=== PATIENT | female | born 1955 | race Caucasian/White ===

== ENCOUNTER 2016-07-16 14:32 | Observation (INO) | payer OTHER ==
[~2016-07-16] VITALS: Ht 165.1 cm; Wt 60.0 kg
[~2016-07-16 14:32] MED LIST: ASPI325T PO; CIPR500T4 PO; METO50TA PO; METR-1 PO; PERC5TAB12 PO; PROZ20CA11 PO; ROSU5 PO; TRAZ100 PO
[2016-07-16 14:34] VITALS: BP 122/78; PULSE 78; RESP 16; TEMP 97.3; O2SAT 97
[2016-07-16] MEDS ORDERED: PROPOFOL 200 MG/20 ML AMP IV ONE (14:41)
[2016-07-16] MEDS ORDERED: NEOSTIGMINE 3 MG/3 ML SYR IV ONE (14:42)
[2016-07-16] MEDS ORDERED: ONDANSETRON HCL 4 MG/2 ML VIAL IV PUSH ONE (14:42)
[2016-07-16 15:28] VITALS: BP 119/94; PULSE 66; RESP 16; O2SAT 99
[2016-07-16] MEDS ORDERED: SODIUM CHLOR 0.9% 1000 ML INJ 1,000 ML IV SCH (15:36)
--- NOTE | 2016-07-16 15:44 | PD ---
HPI Chief Complaint: Abdominal Pain Time Seen by Provider: 15:40 Travel History International Travel<30 days: No Contact w/Intl Traveler<30days: No Traveled to known affect area: No History of Present Illness HPI 61 year old female presents to the emergency department for evaluation of RLQ abdominal pain that started yesterday. She currently rates the pain 6/10. Patient reports nausea, but no vomiting, diarrhea, constipation. She denies any blood in her stool. She denies any CP or SOB. Patient reports history of diverticulitis, anxiety/depression, panic attacks, HTN, hyperlipidemia. Patient denies any alcohol, tobacco, drug use. Patient denies any prior abdominal surgeries. PFSH Past Medical History Anxiety: Yes Depression: Yes High Cholesterol: Yes Diverticulitis: Yes Gastrointestinal Disorders: Yes (GALLBLADDER, INTESTINAL PROBLEMS DUE TO "ANTIBIOTICS") Headaches: Yes Hypertension: Yes Migraines: Yes Influenza Vaccination: Yes Menopausal: Yes Ectopic : Yes Tubal Ligation: Yes Past Surgical History Abdominal Surgery: Yes ( 1986) Section: Yes Gynecologic Surgery: Yes (C SECTION, L BREAST BX AND INFECTION) Social History Alcohol Use: Yes (occasional) Tobacco Use: No Substance Use: No Allergies-Medications (Allergen,Severity, Reaction): Coded Allergies: No Known Allergies (Verified , 07/16/16) Reported Meds & Prescriptions Reported Meds & Active Scripts Active Reported Excedrin Migraine (Eqgebdr-Hxtlxcryqmaat-Oujkjbna) 250-250-65 Mg Tab 2 Tab PO Q12HR PRN Mirtazapine 45 Mg Tab 45 Mg PO HS Atorvastatin (Atorvastatin Calcium) 40 Mg Tab 40 Mg PO HS Dicyclomine (Dicyclomine HCl) 20 Mg Tab 20 Mg PO QID Clonazepam 1 Mg Tab 1 Mg PO BID Metoprolol Tartrate 25 Mg Tab 25 Mg PO BID Bupropion HCl ER 24 HR (Bupropion HCl) 150 Mg Tab 150 Mg PO DAILY Review of Systems Except as stated in HPI: all other systems reviewed are Neg Physical Exam Narrative GENERAL: Well-nourished, well-developed female patient, ambulatory. Afebrile. SKIN: Focused skin assessment warm/dry. HEAD: Normocephalic. Atraumatic. EYES: No scleral icterus. No injection or drainage. NECK: Supple, trachea midline. No JVD or lymphadenopathy. CARDIOVASCULAR: Regular rate and rhythm without murmurs, gallops, or rubs. RESPIRATORY: Breath sounds equal bilaterally. No accessory muscle use. Lungs sounds clear to auscultation. GASTROINTESTINAL: Abdomen soft and nondistended. Patient has tenderness over the right lower quadrant. MUSCULOSKELETAL: No cyanosis, or edema. BACK: Nontender without obvious deformity. No CVA tenderness. Data Data Last Documented VS Vital Signs Date Time Temp Pulse Resp B/P Pulse Ox O2 Delivery O2 Flow Rate FiO2 07/16/16 18:16 77 16 130/68 98 Room Air 07/16/16 14:34 97.3 Orders Complete Blood Count With Diff (07/16/16 15:36) Comprehensive Metabolic Panel (07/16/16 15:36) Lipase (07/16/16 15:36) Urinalysis - C+S If Indicated (07/16/16 15:36) Ct Abd/Pel W Iv Contrast(Rout) (07/16/16 15:36) Iv Access Insert/Monitor (07/16/16 15:36) Ecg Monitoring (07/16/16 15:36) Oximetry (07/16/16 15:36) Ondansetron Inj (Zofran Inj) (07/16/16 15:45) Sodium Chlor 0.9% 1000 Ml Inj (Ns 1000 M (07/16/16 15:36) Sodium Chloride 0.9% Flush (Ns Flush) (07/16/16 15:45) Morphine Inj (Morphine Inj) (07/16/16 15:45) Iohexol 350 Inj (Omnipaque 350 Inj) (07/16/16 17:30) Electrocardiogram (07/16/16 ) Chest, Single Ap (07/16/16 ) Prothrombin Time / Inr (Pt) (07/16/16 18:01) Act Partial Throm Time (Ptt) (07/16/16 18:01) Piperacil-Tazo 3.375 Gm Premix (Zosyn 3. (07/16/16 18:15) Labs Laboratory Tests Test 07/16/16 07/16/16 07/16/16 16:08 16:18 18:15 White Blood Count 7.0 TH/MM3 Red Blood Count 4.06 MIL/MM3 Hemoglobin 11.7 GM/DL Hematocrit 34.5 % Mean Corpuscular Volume 85.0 FL Mean Corpuscular Hemoglobin 28.7 PG Mean Corpuscular Hemoglobin 33.8 % Concent Red Cell Distribution Width 16.1 % Platelet Count 233 TH/MM3 Mean Platelet Volume 7.9 FL Neutrophils (%) (Auto) 66.3 % Lymphocytes (%) (Auto) 22.1 % Monocytes (%) (Auto) 9.1 % Eosinophils (%) (Auto) 2.2 % Basophils (%) (Auto) 0.3 % Neutrophils # (Auto) 4.7 TH/MM3 Lymphocytes # (Auto) 1.6 TH/MM3 Monocytes # (Auto) 0.6 TH/MM3 Eosinophils # (Auto) 0.2 TH/MM3 Basophils # (Auto) 0.0 TH/MM3 CBC Comment DIFF FINAL Differential Comment Sodium Level 143 MEQ/L Potassium Level 4.0 MEQ/L Chloride Level 111 MEQ/L Carbon Dioxide Level 24.3 MEQ/L Anion Gap 8 MEQ/L Blood Urea Nitrogen 13 MG/DL Creatinine 1.01 MG/DL Estimat Glomerular Filtration 56 ML/MIN Rate Random Glucose 81 MG/DL Calcium Level 8.7 MG/DL Total Bilirubin 0.2 MG/DL Aspartate Amino Transf 14 U/L (AST/SGOT) Alanine Aminotransferase 15 U/L (ALT/SGPT) Alkaline Phosphatase 68 U/L Total Protein 6.5 GM/DL Albumin 3.4 GM/DL Lipase 54 U/L Urine Color YELLOW Urine Turbidity CLEAR Urine pH 5.5 Urine Specific [place] 1.009 Urine Protein NEG mg/dL Urine Glucose (UA) NEG mg/dL Urine Ketones NEG mg/dL Urine Occult Blood NEG Urine Nitrite NEG Urine Bilirubin NEG Urine Urobilinogen LESS THAN 2.0 MG/DL Urine Leukocyte Esterase NEG Urine RBC LESS THAN 1 /hpf Urine WBC LESS THAN 1 /hpf Urine Squamous Epithelial <1 /hpf Cells Urine Hyaline Casts 2 /lpf Urine Mucus FEW /lpf Microscopic Urinalysis Comment CULT NOT INDICATED Prothrombin Time 10.6 SEC Prothromb Time International 1.0 RATIO Ratio Activated Partial 28.9 SEC Thromboplast Time MDM Medical Decision Making Medical Screen Exam Complete: Yes Emergency Medical Condition: Yes Medical Record Reviewed: Yes Interpretation(s) Last Impressions Abdomen/Pelvis CT 07/16/16 1536 Signed Impressions: Service Date/Time: Saturday, July 16, 2016 17:04 - CONCLUSION: 1. Borderline to mild enlargement of the appendix with mild inflammatory changes characteristic of a mild acute appendicitis. No abscess, obstruction, free fluid or free air. 2. Multiple gallstones. Juan Tapia MD Differential Diagnosis Appendicitis versus diverticulitis versus UTI Narrative Course 61-year-old female presents to the emergency department for evaluation of right lower quadrant pain that started yesterday. CBC, CMP, lipase, UA are ordered and pending. CBC revealed abdomen/pelvis is ordered and pending. CBC shows no acute normality. CMP shows no acute abnormality. Lipase is 54. UA is negative for acute infection. CT abdomen/pelvis shows borderline to mild enlargement of the appendix with mild inflammatory changes characteristic of a mild acute appendicitis. No abscess, obstruction, free fluid or free air; multiple gallstones. 1804 - General surgeon utilization management rn is paged. Chest x-ray, ekg are ordered and pending. PTT, PT/INR are ordered and pending. Patient is given Zosyn 3.[address] Najera accepted admission. Diagnosis Primary Impression: Acute appendicitis Qualified Code: K35.80 - Acute appendicitis, unspecified acute appendicitis type Admitting Information Admitting Physician Requests: Marie Carpio Jul 16, 2016 15:44
[2016-07-16] MEDS ORDERED: ONDANSETRON HCL 4 MG/2 ML VIAL IVP ONE (15:45)
[2016-07-16] MEDS ORDERED: SODIUM CHLORIDE 0.9% FLUSH 10 ML FLUSH IV FLUSH PRN ×2 (15:45→21:15)
[2016-07-16] MEDS ORDERED: MORPHINE SULFATE 4 MG/ML INJ IV PUSH ONE (15:45)
[2016-07-16 16:24] VITALS: BP 123/59; PULSE 68; RESP 16; O2SAT 98
[2016-07-16 16:24] LABS: AUTOMATED NEUTROPHIL # 4.7 TH/MM3 (1.8-7.7); BASOPHIL % 0.3 % (0.0-2.0); EOSINOPHIL # 0.2 TH/MM3 (0-0.4); EOSINOPHIL % 2.2 % (0.0-4.0); HEMATOCRIT 34.5 % (35.0-46.0); HEMO FLAGS DIFF FINAL; LYMPH % 22.1 % (9.0-44.0); LYMPHOCYTE # 1.6 TH/MM3 (1.0-4.8); MEAN CORPUSCULAR HEMOGLOBIN 28.7 PG (27.0-34.0); MEAN CORPUSCULAR HGB CONC 33.8 % (32.0-36.0); MONO % 9.1 % (0.0-8.0); NEUT % 66.3 % (16.0-70.0); PLATELET COUNT 233 TH/MM3 (150-450); RED BLOOD COUNT 4.06 MIL/MM3 (4.00-5.30); RED CELL DISTRIBUTION WIDTH 16.1 % (11.6-17.2)
[2016-07-16 16:27] LABS: BLOOD, URINE NEG (NEG); COMMENT (UR) CULT NOT INDICATED; CULTURE IF INDICATED CULT NOT INDICATED; GLUCOSE,URINE NEG (NEG); HYALINE CAST, URINE 2 /lpf (RARE); KETONE, URINE NEG (NEG); MUCUS URINE FEW /lpf (OCC); NITRITE,URINE NEG (NEG); PH, URINE 5.5 (5.0-8.5); SQUAMOUS EPITHELIAL CELL URINE <1 /hpf (0-5); URINE COLOR YELLOW (YELLW/STRAW)
[2016-07-16 16:47] LABS: ANION GAP 8 MEQ/L (5-15); AST (GOT) 14 U/L (15-37); BICARBONATE 24.3 MEQ/L (21.0-32.0); BLOOD UREA NITROGEN 13 MG/DL (7-18); CHLORIDE 111 MEQ/L (98-107); GLOMERULAR FILTRATION RATE 56 ML/MIN (>89); SODIUM (NA) 143 MEQ/L (136-145)
[2016-07-16 16:51] LABS: ALKALINE PHOSPHATASE 68 U/L (45-117); ALT (GPT) 15 U/L (10-53); TOTAL BILIRUBIN ADULT 0.2 MG/DL (0.2-1.0)
[2016-07-16] MEDS ORDERED: IOHEXOL 350 MG/ML 10 ML VIAL (for RAD DIAG) IV ONE (17:30)
--- NOTE | 2016-07-16 17:46 | RADRPT ---
EXAM DATE/TIME: 07/16/2016 17:04 [facility] COMPARISON: CT ABDOMEN & PELVIS W CONTRAST, January 05, 2015, 16:44. INDICATIONS : Right lower abdomen pain with nausea and vomiting today. IV CONTRAST: 70 cc Omnipaque 350 (iohexol) IV ORAL CONTRAST: No oral contrast ingested. RADIATION DOSE: 9.96 CTDIvol (mGy) MEDICAL HISTORY : Hypertension. SURGICAL HISTORY : Tubal ligation. ENCOUNTER: Initial ACUITY: 1 day PAIN SCALE: 5/10 LOCATION: Right lower quadrant TECHNIQUE: Volumetric scanning of the abdomen and pelvis was performed. Using automated exposure control and ad justment of the mA and/or kV according to patient size, radiation dose was kept as low as reasonably achievable to obtain optimal diagnostic quality images. FINDINGS: Compare with 2014. Lung bases are clear except minimal dependent atelectasis. No acute findings in th e liver, spleen, adrenals, kidneys or pancreas. Stable right renal cysts. Multiple calcified gallston es again seen in the gallbladder. In the right lower quadrant the appendix is minimally prominent just over 1 cm in diameter and there are mild periappendiceal inflammatory changes. No abscess, obstruction, free fluid or free air. CONCLUSION: 1. Borderline to mild enlargement of the appendix with mild inflammatory changes characteristic of a mild acute appendicitis. No abscess, obstruction, free fluid or free air. 2. Multiple gallstones. Juan Tapia MD on July 16, 2016 at 17:35 Board Certified Radiologist. This report was verified electronically.
[2016-07-16] MEDS ORDERED: PIPERACIL-TAZO 3.375 GM PREMIX 50 ML IV ONE (18:15)
[2016-07-16 18:16] VITALS: BP 130/68; PULSE 77; RESP 16; O2SAT 98
[2016-07-16 18:43] LABS: APTT (PATIENT) 28.9 SEC (24.3-30.1); PROTHROMBIN TIME - PATIENT 10.6 SEC (9.8-11.6)
[2016-07-16] MEDS ORDERED: ATOR40TA16 PO (18:48)
[2016-07-16] MEDS ORDERED: CLON1TAB PO (18:48)
[2016-07-16] MEDS ORDERED: EXCETAB PO (18:48)
[2016-07-16] MEDS ORDERED: BUPR150T3 PO (18:48)
[2016-07-16] MEDS ORDERED: METO25TA3 PO (18:48)
[2016-07-16] MEDS ORDERED: MIRT45TA PO (18:48)
[2016-07-16] MEDS ORDERED: DICY20TA10 PO (18:48)
--- NOTE | 2016-07-16 19:05 | RADRPT ---
EXAM DATE/TIME: 07/16/2016 18:30 [facility] COMPARISON: No previous studies available for comparison. INDICATIONS : Evaluate for any pulmonary disease as patient is pre-op for appendectomy MEDICAL HISTORY : Hypertension. SURGICAL HISTORY : Tubal ligation. ENCOUNTER: Initial ACUITY: 1 day PAIN SCORE: 0/10 LOCATION: Bilateral chest FINDINGS: A single view of the chest demonstrates the lungs to be symmetrically aerated without evidence of mas s, infiltrate or effusion. The cardiomediastinal contours are unremarkable. Osseous structures are intact. CONCLUSION: No acute disease. Juan Tapia MD on July 16, 2016 at 19:03 Board Certified Radiologist. This report was verified electronically.
--- NOTE | 2016-07-16 19:19 | HHI.HP ---
HPI Service General Surgery Primary Care Physician Idalia Bolaños MD Admission Diagnosis acute appendicitis Chief Complaint: Abdominal pain History of Present Illness The patient is a 61-year-old female with a history of migraines, hypertension, anxiety, and hyperlipidemia who presents with abdominal pain which started yesterday afternoon. It began in the right lower quadrant and it persists in the right lower quadrant. She's had nausea but no vomiting. She's had somewhat abnormal texture to her stools but no diarrhea. She has never had any pain like this. She does have a history of diverticulitis which felt different. Past surgical history includes and tubal ligation. She does have a history of gallstones, however, she denies any history of right upper quadrant pain after eating or nausea or bloating. Review of Systems Constitutional: DENIES: Fever, Chills Eyes: DENIES: Eye inflammation, Eye pain Respiratory: DENIES: Cough, Shortness of breath Cardiovascular: DENIES: Chest pain, Palpitations Gastrointestinal: COMPLAINS OF: Abdominal pain, Nausea Integumentary: DENIES: Pruritus, Rash Neurologic: DENIES: Localized weakness, Paresthesias Past Family Social History Past Medical History Migraines Hypertension Hyperlipidemia Anxiety Past Surgical History Tubal ligation Reported Medications Reported Meds & Active Scripts Active Reported Excedrin Migraine (Zuzlzwy-Pwsomtaaegobh-Pqgzfxmm) 250-250-65 Mg Tab 2 Tab PO Q12HR PRN Mirtazapine 45 Mg Tab 45 Mg PO HS Atorvastatin (Atorvastatin Calcium) 40 Mg Tab 40 Mg PO HS Dicyclomine (Dicyclomine HCl) 20 Mg Tab 20 Mg PO QID Clonazepam 1 Mg Tab 1 Mg PO BID Metoprolol Tartrate 25 Mg Tab 25 Mg PO BID Bupropion HCl ER 24 HR (Bupropion HCl) 150 Mg Tab 150 Mg PO DAILY Allergies: Coded Allergies: No Known Allergies (Verified , 07/16/16) Active Ordered Medications Current Medications Medications (Trade) Dose Ordered Sig/Yaz Route Start Time Stop Time Status Last Admin (NS Flush) 2 ml UNSCH PRN IV FLUSH 07/16/16 15:45 Family History Noncontributory Social History Occasional alcohol. No tobacco use. Physical Exam Vital Signs Vital Signs Date Time Temp Pulse Resp B/P Pulse Ox O2 Delivery O2 Flow Rate FiO2 07/16/16 18:16 77 16 130/68 98 Room Air 07/16/16 16:24 68 16 123/59 98 Room Air 07/16/16 15:28 66 16 119/94 99 Room Air 07/16/16 14:34 97.3 78 16 122/78 97 Room Air Physical Exam GENERAL: Awake and alert. No acute distress. Cooperative. HEAD: Normocephalic. Atraumatic. EYES: Pupils equal round and reactive to light bilaterally. No scleral icterus. CHEST: Lungs clear to auscultation bilaterally with no wheezing or rhonchi. No respiratory distress. CARDIOVASCULAR: Regular rate and rhythm. ABDOMEN: Soft. No rebound or guarding. Moderate tenderness to deep palpation in the right lower quadrant. EXTREMITIES: No cyanosis or edema. SKIN: Warm, dry, nonjaundiced. Laboratory Laboratory Tests Test 07/16/16 07/16/16 07/16/16 16:08 16:18 18:15 White Blood Count 7.0 Red Blood Count 4.06 Hemoglobin 11.7 Hematocrit 34.5 Mean Corpuscular Volume 85.0 Mean Corpuscular Hemoglobin 28.7 Mean Corpuscular Hemoglobin 33.8 Concent Red Cell Distribution Width 16.1 Platelet Count 233 Mean Platelet Volume 7.9 Neutrophils (%) (Auto) 66.3 Lymphocytes (%) (Auto) 22.1 Monocytes (%) (Auto) 9.1 Eosinophils (%) (Auto) 2.2 Basophils (%) (Auto) 0.3 Neutrophils # (Auto) 4.7 Lymphocytes # (Auto) 1.6 Monocytes # (Auto) 0.6 Eosinophils # (Auto) 0.2 Basophils # (Auto) 0.0 CBC Comment DIFF FINAL Differential Comment Sodium Level 143 Potassium Level 4.0 Chloride Level 111 Carbon Dioxide Level 24.3 Anion Gap 8 Blood Urea Nitrogen 13 Creatinine 1.01 Estimat Glomerular Filtration 56 Rate Random Glucose 81 Calcium Level 8.7 Total Bilirubin 0.2 Aspartate Amino Transf 14 (AST/SGOT) Alanine Aminotransferase 15 (ALT/SGPT) Alkaline Phosphatase 68 Total Protein 6.5 Albumin 3.4 Lipase 54 Urine Color YELLOW Urine Turbidity CLEAR Urine pH 5.5 Urine Specific [place] 1.009 Urine Protein NEG Urine Glucose (UA) NEG Urine Ketones NEG Urine Occult Blood NEG Urine Nitrite NEG Urine Bilirubin NEG Urine Urobilinogen LESS THAN 2.0 Urine Leukocyte Esterase NEG Urine RBC LESS THAN 1 Urine WBC LESS THAN 1 Urine Squamous Epithelial <1 Cells Urine Hyaline Casts 2 Urine Mucus FEW Microscopic Urinalysis Comment CULT NOT INDICATED Prothrombin Time 10.6 Prothromb Time International 1.0 Ratio Activated Partial 28.9 Thromboplast Time Result Diagram: 07/16/16 1608 07/16/16 1608 Imaging Last Impressions Abdomen/Pelvis CT 07/16/16 1536 Signed Impressions: Service Date/Time: Saturday, July 16, 2016 17:04 - CONCLUSION: 1. Borderline to mild enlargement of the appendix with mild inflammatory changes characteristic of a mild acute appendicitis. No abscess, obstruction, free fluid or free air. 2. Multiple gallstones. Juan Tapia MD Chest X-Ray 07/16/16 0000 Signed Impressions: Service Date/Time: Saturday, July 16, 2016 18:30 - CONCLUSION: No acute disease. Juan Tapia MD Assessment and Plan Assessment and Plan 61-year-old female who has an evaluation consistent with acute appendicitis. She has incidental finding of gallstones but is asymptomatic from that standpoint. I recommend to proceed with laparoscopic possible open, appendectomy. I discussed the details risks and benefits of the procedure with the patient and her . She understands and desires to proceed. She has been administered Zosyn in the emergency department. Tayo Najera MD Jul 16, 2016 19:19
[2016-07-16] MEDS ORDERED: BUPIVACAINE/EPINEPHRINE 0.25% PF 30 ML VIAL ONE (19:55)
[2016-07-16] MEDS ORDERED: MIDAZOLAM HCL 2 MG/2 ML VIAL ONE (20:13)
[2016-07-16] MEDS ORDERED: ACETAMINOPHEN 1000 MG/100 ML VIAL IV ONE (20:13)
[2016-07-16] MEDS ORDERED: fentaNYL CITRATE 250 MCG/5 ML AMP ONE (20:13)
[2016-07-16] MEDS ORDERED: LACTATED RINGER'S 1000 ML INJ 1,000 ML IV SCH (21:09)
[2016-07-16] MEDS ORDERED: MORPHINE SULFATE 4 MG/ML INJ IV PRN (21:15)
[2016-07-16] MEDS ORDERED: Post-op Orders (for Pharmacy) MISC XX ONE (21:15)
[2016-07-16] MEDS ORDERED: diphenhydrAMINE HCL 25 MG CAP PO PRN (21:15)
[2016-07-16] MEDS ORDERED: ACETAMINOPHEN/HYDROcodone 325 MG/5 MG TAB PO PRN (21:15)
[2016-07-16] MEDS ORDERED: NALOXONE HCL 0.4 MG/ML AMP IV PRN (21:15)
[2016-07-16] MEDS ORDERED: ONDANSETRON HCL 4 MG/2 ML VIAL IV PRN (21:15)
[2016-07-16] MEDS ORDERED: DO NOT ADM ANY ANTICOAGULANT DRUGS PRN (21:17)
--- NOTE | 2016-07-16 21:17 | PD.OP ---
cc: Tayo Najera MD Operative Report Date of Surgery: Jul 16, 2016 Preoperative Diagnosis: (1) Acute appendicitis Postoperative Diagnosis: (1) Acute appendicitis Procedure: Laparoscopic appendectomy Anesthesia: GETA Surgeon: Tyao Najera General Adjuster(s): Jose ROSADO Operation and Findings: EBL: 5 cc Complications: None apparent Operative findings: The tip of the appendix was slightly dilated. Otherwise the appendix appeared normal. Adhesions from the cecum to the anterior abdominal wall were taken down. The uterus both ovaries and fallopian tubes appeared normal. The distal half of the small bowel appeared normal. The sigmoid colon had no inflammation. The gallbladder was not inflamed but did have either stones or one large stone. Procedure in detail: The patient was taken to the operating room placed in the supine position with left arm tucked. General endotracheal anesthesia was induced and the abdomen was prepped and draped in usual sterile fashion. Surgical timeout was performed to verify correct patient procedure and site. Perioperative antibiotics were administered as necessary. Local anesthetic was injected in the skin and subcutaneous tissue at the left mid abdomen and a 5 mm incision made. Using the 5 mm Optiview trocar with laparoscope the abdomen was directly entered. Was then insufflated to 15 mmHg with CO2 gas which the patient tolerated well. The patient was then placed in Trendelenburg position and turned slightly to the left. A 12 mm port was placed under laparoscopic visualization in the suprapubic area and a 5 mm port in the infraumbilical fold. Attention was turned to the right lower quadrant and the appendix was basically normal appearing. There was possibly small amt of dilated/ inflammation at the tip. I opted to proceed with appendectomy. The mesoappendix was taken down with the Harmonic scalpel. Two #1 PDS Endoloops were placed at the base the appendix and the appendix transected with Harmonic scalpel. It was then removed using an Endo Catch bag. The appendiceal stump was intact with no leakage. Adhesions from the cecum to the anterior abdominal wall were taken down with the Harmonic scalpel. The distal half of the small bowel from the terminal ileum proximally was run and there was no inflammation or abnormalities. The uterus and both fallopian tubes and ovaries were normal appearing and there was no fluid in the pelvis. The gallbladder was inspected and was not inflamed. There were either multiple stones and one large stone in the gallbladder. I previously discussed with the patient if he was having any right upper quadrant pain or postprandial pain at all and she denied this. Therefore I did not perform a cholecystectomy. Finding no further etiology for pain other than possible appendicitis the procedure was then aborted. There was no purulent fluid identified in the abdomen was allowed to desufflate. The fascia at the 12 mm port site was closed with a single 0 Vicryl suture. Skin closed with subcuticular Monocryl as well as Dermabond. The patient tolerated the procedure well was extubated and taken to PACU in stable condition. Tayo Najera MD Jul 16, 2016 21:17
[2016-07-16 22:10] VITALS: BP 131/65; PULSE 66; RESP 16; TEMP 96; O2SAT 100
[2016-07-16 22:58] VITALS: O2SAT 100
[2016-07-16] MEDS: ACETAMINOPHEN/HYDROcodone 325 MG/10 MG TAB PO PRN (23:13)
[2016-07-17] VITALS: BP 113/76; PULSE 76; RESP 18; TEMP 97.1; O2SAT 98
[2016-07-17 04:00] VITALS: BP 106/57; PULSE 85; RESP 20; TEMP 97.9; O2SAT 95
[2016-07-17] MEDS: ACETAMINOPHEN/HYDROcodone 325 MG/10 MG TAB PO PRN (04:49)
[2016-07-17] MEDS: clonazePAM 1 MG TAB PO SCH ×2 (06:14→09:35)
[2016-07-17] MEDS ORDERED: ASPIRIN ACETAMINOPHEN CAFFEINE PO PRN (07:15)
[2016-07-17 07:23] LABS: AUTOMATED NEUTROPHIL # 7.1 TH/MM3 (1.8-7.7); BASOPHIL % 0.1 % (0.0-2.0); HEMATOCRIT 33.1 % (35.0-46.0); HEMO FLAGS DIFF FINAL; LYMPH % 8.5 % (9.0-44.0); LYMPHOCYTE # 0.7 TH/MM3 (1.0-4.8); MEAN CORPUSCULAR HEMOGLOBIN 28.4 PG (27.0-34.0); MEAN CORPUSCULAR HGB CONC 33.4 % (32.0-36.0); MONO % 1.9 % (0.0-8.0); NEUT % 89.5 % (16.0-70.0); PLATELET COUNT 231 TH/MM3 (150-450)
[2016-07-17 07:32] VITALS: BP 100/52; PULSE 74; RESP 16; TEMP 98.6; O2SAT 94
[2016-07-17] MEDS ORDERED: HYDR-3516 PO (08:12)
--- NOTE | 2016-07-17 08:15 | HHI.PR ---
Subjective Subjective Notes RLQ pain is gone. No nausea. Had jello and yogurt last night. Objective Vitals/I&O Vital Signs Date Time Temp Pulse Resp B/P Pulse Ox O2 Delivery O2 Flow Rate FiO2 07/17/16 04:00 97.9 85 20 106/57 95 07/16/16 22:58 Nasal Cannula 2.00 Labs Laboratory Tests Test 07/16/16 07/16/16 07/16/16 07/17/16 16:08 16:18 18:15 06:41 White Blood Count 7.0 8.0 Red Blood Count 4.06 3.90 Hemoglobin 11.7 11.1 Hematocrit 34.5 33.1 Mean Corpuscular Volume 85.0 85.0 Mean Corpuscular Hemoglobin 28.7 28.4 Mean Corpuscular Hemoglobin 33.8 33.4 Concent Red Cell Distribution Width 16.1 16.0 Platelet Count 233 231 Mean Platelet Volume 7.9 8.0 Neutrophils (%) (Auto) 66.3 89.5 Lymphocytes (%) (Auto) 22.1 8.5 Monocytes (%) (Auto) 9.1 1.9 Eosinophils (%) (Auto) 2.2 0.0 Basophils (%) (Auto) 0.3 0.1 Neutrophils # (Auto) 4.7 7.1 Lymphocytes # (Auto) 1.6 0.7 Monocytes # (Auto) 0.6 0.1 Eosinophils # (Auto) 0.2 0.0 Basophils # (Auto) 0.0 0.0 CBC Comment DIFF FINAL DIFF FINAL Differential Comment Sodium Level 143 Potassium Level 4.0 Chloride Level 111 Carbon Dioxide Level 24.3 Anion Gap 8 Blood Urea Nitrogen 13 Creatinine 1.01 Estimat Glomerular Filtration 56 Rate Random Glucose 81 Calcium Level 8.7 Total Bilirubin 0.2 Aspartate Amino Transf 14 (AST/SGOT) Alanine Aminotransferase 15 (ALT/SGPT) Alkaline Phosphatase 68 Total Protein 6.5 Albumin 3.4 Lipase 54 Urine Color YELLOW Urine Turbidity CLEAR Urine pH 5.5 Urine Specific [place] 1.009 Urine Protein NEG Urine Glucose (UA) NEG Urine Ketones NEG Urine Occult Blood NEG Urine Nitrite NEG Urine Bilirubin NEG Urine Urobilinogen LESS THAN 2.0 Urine Leukocyte Esterase NEG Urine RBC LESS THAN 1 Urine WBC LESS THAN 1 Urine Squamous Epithelial <1 Cells Urine Hyaline Casts 2 Urine Mucus FEW Microscopic Urinalysis Comment CULT NOT INDICATED Prothrombin Time 10.6 Prothromb Time International 1.0 Ratio Activated Partial 28.9 Thromboplast Time Radiology Last Impressions Abdomen/Pelvis CT 07/16/16 1536 Signed Impressions: Service Date/Time: Saturday, July 16, 2016 17:04 - CONCLUSION: 1. Borderline to mild enlargement of the appendix with mild inflammatory changes characteristic of a mild acute appendicitis. No abscess, obstruction, free fluid or free air. 2. Multiple gallstones. Juan Tapia MD Chest X-Ray 07/16/16 0000 Signed Impressions: Service Date/Time: Saturday, July 16, 2016 18:30 - CONCLUSION: No acute disease. Juan Tapia MD Narrative Exam NAD Abd: soft, nontender except at incisions, inc c/d/i A/P Assessment and Plan 61 yo F POD 1 s/p lap appy. Appendix appeared normal. Her pain is better and she has no nausea. I am going to dc her home. She will f/u in two weeks, call earlier if any issues. Stable. Reg diet. Activity- no heavy lifting. Tayo Najera MD Jul 17, 2016 08:15
[2016-07-17] MEDS ORDERED: METOPROLOL TARTRATE 25 MG TAB PO SCH (09:00)
[2016-07-17] MEDS ORDERED: SODIUM CHLORIDE 0.9% FLUSH 10 ML FLUSH IV FLUSH SCH (09:00)
[2016-07-17] MEDS ORDERED: buPROPion HCL 150 MG SUSTAINED RELEASE TAB PO SCH (10:00)
--- NOTE | 2016-07-17 11:43 | EKG ---
Date Performed: 07/16/2016 Time Performed: 18:23:58 PTAGE: 61 years EKG: Sinus rhythm NORMAL ECG PREVIOUS TRACING : 02/29/2004 12.23 Compared to prior tracing no significant change DOCTOR: Itz Colindres Interpretating Date/Time 07/17/2016 11:42:53
[2016-07-17] MEDS ORDERED: MIRTAZAPINE 15 MG TAB PO SCH (21:00)
[2016-07-17] MEDS ORDERED: ATORVASTATIN 40 MG TAB PO SCH (21:00)
== END 2016-07-17 11:00 | disposition home or self-care (01) ==
LOC: NEPC 14:32 → NEDA 19:12 → N06B 22:03
PROVIDERS: ADMIT Surgery; ATTEND Surgery
DX: K35.80 Unspecified acute appendicitis (principal); I10 Essential (primary) hypertension; E78.5 Hyperlipidemia, unspecified; F41.0 Panic disorder [episodic paroxysmal anxiety]; F32.9 Major depressive disorder, single episode, unspecified; E78.00 Pure hypercholesterolemia, unspecified; G43.909 Migraine, unspecified, not intractable, without status migrainosus
CPT/HCPCS: 44970; 71010; 74177; 80053; 81001; 83690; 85025; 85610; 85730; 88304; 93005; 94150; 96361; 96365; 96375; 99285; G0378; J0131; J2250; J2270; J2405; J2543; J2710; J3010; J7030; Q9967

== ENCOUNTER 2016-07-22 19:27 | Emergency (ER) | payer OTHER ==
[~2016-07-22] VITALS: Ht 165.1 cm; Wt 59.1 kg
[~2016-07-22 19:27] MED LIST changes: -ASPI325T PO; +ATOR40TA16 PO; +BUPR150T3 PO; -CIPR500T4 PO; +CLON1TAB PO; +DICY20TA10 PO; +EXCETAB PO; +HYDR-3516 PO; +METO25TA3 PO; -METO50TA PO; -METR-1 PO; +MIRT45TA PO; -PERC5TAB12 PO; -PROZ20CA11 PO; -ROSU5 PO; -TRAZ100 PO
[2016-07-22 19:29] VITALS: BP 141/65; PULSE 104; RESP 16; TEMP 97.9; O2SAT 99
[2016-07-22 20:52] VITALS: BP 136/72; PULSE 101; RESP 18; TEMP 98.2; O2SAT 99
[2016-07-22] MEDS ORDERED: SODIUM CHLOR 0.9% 1000 ML INJ 1,000 ML IV SCH (21:04)
[2016-07-22] MEDS ORDERED: SODIUM CHLORIDE 0.9% FLUSH 10 ML FLUSH IV FLUSH PRN (21:15)
[2016-07-22] MEDS ORDERED: ONDANSETRON HCL 4 MG/2 ML VIAL IVP ONE (21:15)
[2016-07-22] MEDS ORDERED: HYDROmorphone HCL PF 1 MG/ML VIAL IVS ONE (21:15)
[2016-07-22 21:45] LABS: BACTERIA, URINE RARE /hpf; BLOOD, URINE SMALL (NEG); COMMENT (UR) CULT NOT INDICATED; CULTURE IF INDICATED CULT NOT INDICATED; GLUCOSE,URINE NEG (NEG); HYALINE CAST, URINE 5 /lpf (RARE); KETONE, URINE TRACE mg/dL (NEG); MUCUS URINE FEW /lpf (OCC); NITRITE,URINE NEG (NEG); PH, URINE 5.5 (5.0-8.5); SQUAMOUS EPITHELIAL CELL URINE 5 /hpf (0-5); URINE COLOR DARK-YELLOW (YELLW/STRAW)
[2016-07-22 21:48] LABS: AUTOMATED NEUTROPHIL # 11.1 TH/MM3 (1.8-7.7); BASOPHIL % 0.2 % (0.0-2.0); HEMATOCRIT 41.1 % (35.0-46.0); HEMO FLAGS DIFF FINAL; LYMPH % 4.4 % (9.0-44.0); LYMPHOCYTE # 0.6 TH/MM3 (1.0-4.8); MEAN CORPUSCULAR HEMOGLOBIN 27.8 PG (27.0-34.0); MEAN CORPUSCULAR HGB CONC 32.3 % (32.0-36.0); NEUT % 84.4 % (16.0-70.0); PLATELET COUNT 303 TH/MM3 (150-450); RED BLOOD COUNT 4.79 MIL/MM3 (4.00-5.30); RED CELL DISTRIBUTION WIDTH 15.8 % (11.6-17.2); WHITE BLOOD COUNT 13.1 TH/MM3 (4.0-11.0)
[2016-07-22 22:13] LABS: ANION GAP 11 MEQ/L (5-15); AST (GOT) 16 U/L (15-37); BICARBONATE 24.6 MEQ/L (21.0-32.0); BLOOD UREA NITROGEN 17 MG/DL (7-18); CHLORIDE 102 MEQ/L (98-107); GLOMERULAR FILTRATION RATE 38 ML/MIN (>89); POTASSIUM 3.5 MEQ/L (3.5-5.1); SODIUM (NA) 138 MEQ/L (136-145)
[2016-07-22 22:16] LABS: ALKALINE PHOSPHATASE 116 U/L (45-117); ALT (GPT) 18 U/L (10-53); TOTAL BILIRUBIN ADULT 0.2 MG/DL (0.2-1.0)
--- NOTE | 2016-07-22 22:27 | PD ---
HPI Chief Complaint: Abdominal Pain Time Seen by Provider: 20:47 Travel History International Travel<30 days: No Contact w/Intl Traveler<30days: No Traveled to known affect area: No History of Present Illness HPI 61-year-old female arrives complaining of left lower quadrant pain for about 1 day. Pain started about 12 hours prior to ER arrival. She reports diarrhea upon waking up at about 10:30 in the morning followed by vomiting. The emesis was yellow. The diarrhea was nonbloody. She drinks soda today and had no solid food otherwise. The patient underwent an appendectomy approximately [address] Najera. Last night the patient ate her first solid meal since the surgery which was reported couplets and blanched cauliflower. She denies fever. PFSH Past Medical History Arthritis: No Asthma: No Autoimmune Disease: No Anxiety: Yes Depression: Yes Heart Rhythm Problems: No Cancer: No Cardiovascular Problems: Yes High Cholesterol: Yes Chemotherapy: No Chest Pain: No Congestive Heart Failure: No COPD: No Cerebrovascular Accident: No Diabetes: No Diverticulitis: Yes Endocrine: No Gastrointestinal Disorders: Yes (GALLBLADDER, INTESTINAL PROBLEMS DUE TO "ANTIBIOTICS") GERD: No Genitourinary: No Headaches: Yes Hiatal Hernia: No Hypertension: Yes Immune Disorder: No Kidney Stones: No Musculoskeletal: No Neurologic: Yes Psychiatric: Yes Reproductive: No Respiratory: No Migraines: Yes Radiation Therapy: No Renal Failure: No Seizures: No Sickle Cell Disease: No Sleep Apnea: No Thyroid Disease: No Ulcer: No Tetanus Vaccination: < 5 Years Menopausal: Yes Ectopic : Yes Tubal Ligation: Yes Past Surgical History Abdominal Surgery: No AICD: No Appendectomy: Yes Arteriovenous Shunt: No Cardiac Surgery: No Section: Yes Ear Surgery: No Endocrine Surgery: No Eye Surgery: No Genitourinary Surgery: No Gynecologic Surgery: Yes (, TUBAL LIGATION, BILATERAL BREAST CYST REMOVAL) Insulin Pump: No Joint Replacement: No Oral Surgery: No Pacemaker: No Thoracic Surgery: No Other Surgery: Yes Social History Alcohol Use: Yes (occasional) Tobacco Use: No Substance Use: No Allergies-Medications (Allergen,Severity, Reaction): Coded Allergies: No Known Allergies (Verified , 07/22/16) Reported Meds & Prescriptions Reported Meds & Active Scripts Active Reglan (Metoclopramide HCl) 5 Mg Tab 5 Mg PO TIDAC PRN Bactrim DS (Sulfamethoxazole-Trimethoprim) 800-160 Mg Tab 1 Tab PO BID Hydrocodone-Acetaminophen 5-325 mg Tab 1-2 Tab PO Q4H PRN Reported Wellbutrin Xl 24 HR (Bupropion HCl) 150 Mg Tab 150 Mg PO DAILY Excedrin Migraine (Tyqslcw-Hwwijtauewamw-Weogcfnl) 250-250-65 Mg Tab 2 Tab PO Q12HR PRN Mirtazapine 45 Mg Tab 45 Mg PO HS Atorvastatin (Atorvastatin Calcium) 40 Mg Tab 40 Mg PO HS Dicyclomine (Dicyclomine HCl) 20 Mg Tab 20 Mg PO QID Clonazepam 1 Mg Tab 1 Mg PO BID Metoprolol Tartrate 25 Mg Tab 25 Mg PO BID Review of Systems Except as stated in HPI: all other systems reviewed are Neg General / Constitutional: No: Fever Gastrointestinal: Positive: Nausea, Vomiting, Diarrhea, Abdominal Pain Physical Exam Narrative GENERAL: 61-year-old female pleasant well-nourished well-developed SKIN: Focused skin assessment warm/dry. HEAD: Atraumatic. Normocephalic. EYES: Pupils equal and round. No scleral icterus. No injection or drainage. ENT: No nasal bleeding or discharge. Mucous membranes pink and moist. NECK: Trachea midline. No JVD. CARDIOVASCULAR: Regular rate and rhythm. No murmur appreciated. RESPIRATORY: No accessory muscle use. Clear to auscultation. Breath sounds equal bilaterally. GASTROINTESTINAL: Trocar incision sites are well approximated about the abdomen. There is marked tenderness to palpation in the left lower quadrant. The abdomen is soft. MUSCULOSKELETAL: No obvious deformities. No clubbing. No cyanosis. No edema. NEUROLOGICAL: Awake and alert. No obvious cranial nerve deficits. Motor grossly within normal limits. Normal speech. PSYCHIATRIC: Appropriate mood and affect; insight and judgment normal. Data Data Last Documented VS Vital Signs Date Time Temp Pulse Resp B/P Pulse Ox O2 Delivery O2 Flow Rate FiO2 07/22/16 23:36 98.4 89 18 122/68 98 Room Air Vital signs reviewed Orders Complete Blood Count With Diff (07/22/16 21:04) Comprehensive Metabolic Panel (07/22/16 21:04) Lipase (07/22/16 21:04) Lactic Acid (07/22/16 21:04) Urinalysis - C+S If Indicated (07/22/16 21:04) Ct Abd/Pel W Iv Contrast(Rout) (07/22/16 21:04) Iv Access Insert/Monitor (07/22/16 21:04) Ecg Monitoring (07/22/16 21:04) Oximetry (07/22/16 21:04) Ondansetron Inj (Zofran Inj) (07/22/16 21:15) Sodium Chlor 0.9% 1000 Ml Inj (Ns 1000 M (07/22/16 21:04) Sodium Chloride 0.9% Flush (Ns Flush) (07/22/16 21:15) Hydromorphone Pf Inj (Dilaudid Pf Inj) (07/22/16 21:15) Iodixanol 320 Inj (Visipaque 320 Inj) (07/22/16 23:09) Lactic Acid (07/23/16 00:05) Sulfamet-Trimeth Ds 800-160 Mg (Bactrim (07/23/16 01:15) Labs Laboratory Tests Test 07/22/16 07/22/16 07/23/16 21:00 21:10 00:22 Urine Color DARK-YELLOW Urine Turbidity HAZY Urine pH 5.5 Urine Specific [place] 1.032 Urine Protein 30 mg/dL Urine Glucose (UA) NEG mg/dL Urine Ketones TRACE mg/dL Urine Occult Blood SMALL Urine Nitrite NEG Urine Bilirubin NEG Urine Urobilinogen 4.0 MG/DL Urine Leukocyte Esterase SMALL Urine RBC 6 /hpf Urine WBC 3 /hpf Urine Squamous Epithelial 5 /hpf Cells Urine Bacteria RARE /hpf Urine Hyaline Casts 5 /lpf Urine Mucus FEW /lpf Microscopic Urinalysis Comment CULT NOT INDICATED White Blood Count 13.1 TH/MM3 Red Blood Count 4.79 MIL/MM3 Hemoglobin 13.3 GM/DL Hematocrit 41.1 % Mean Corpuscular Volume 86.0 FL Mean Corpuscular Hemoglobin 27.8 PG Mean Corpuscular Hemoglobin 32.3 % Concent Red Cell Distribution Width 15.8 % Platelet Count 303 TH/MM3 Mean Platelet Volume 8.1 FL Neutrophils (%) (Auto) 84.4 % Lymphocytes (%) (Auto) 4.4 % Monocytes (%) (Auto) 11.0 % Eosinophils (%) (Auto) 0.0 % Basophils (%) (Auto) 0.2 % Neutrophils # (Auto) 11.1 TH/MM3 Lymphocytes # (Auto) 0.6 TH/MM3 Monocytes # (Auto) 1.5 TH/MM3 Eosinophils # (Auto) 0.0 TH/MM3 Basophils # (Auto) 0.0 TH/MM3 CBC Comment DIFF FINAL Differential Comment Sodium Level 138 MEQ/L Potassium Level 3.5 MEQ/L Chloride Level 102 MEQ/L Carbon Dioxide Level 24.6 MEQ/L Anion Gap 11 MEQ/L Blood Urea Nitrogen 17 MG/DL Creatinine 1.39 MG/DL Estimat Glomerular Filtration 38 ML/MIN Rate Random Glucose 178 MG/DL Lactic Acid Level 4.9 mmol/L 3.0 mmol/L Calcium Level 9.4 MG/DL Total Bilirubin 0.2 MG/DL Aspartate Amino Transf 16 U/L (AST/SGOT) Alanine Aminotransferase 18 U/L (ALT/SGPT) Alkaline Phosphatase 116 U/L Total Protein 7.6 GM/DL Albumin 3.7 GM/DL Lipase 41 U/L [facility] Medical Decision Making Medical Screen Exam Complete: Yes Emergency Medical Condition: Yes Medical Record Reviewed: Yes Differential Diagnosis Constipation, Gastritis, Acute Cholecystitis, Biliary Colic, Pancreatitis, RUSSELL , Hepatitis, Bowel Obstruction, Cystitis, Mesenteric Ischemia, AAA, Appendicitis , Renal Stone/Hydronephrosis, GERD, perforated viscous Narrative Course CBC & BMP Diagram 07/22/16 21:10 LFTs normal Lipase 41 Urinalysis shows a few RBCs squamous cells and WBCs Patient reassessed at about 10:15 PM and reported feeling better. She was seen resting comfortably. CT pelvis pending. Last 24 hours Impressions Abdomen/Pelvis CT 07/22/162103 Signed Impressions: Service Date/Time: Friday, July 22, 2016 23:02 - CONCLUSION: 1. There is air within the intra-abdominal wall within the left lower quadrant without inflammatory change. This could relate to subcutaneous injections of medication. I cannot completely exclude infection although I see no inflammatory change. 2. Cholelithiasis. Jose Feilds Jr., MD The repeat lactic acid was 3.0. The patient has been reassessed about 3 times at least since the first results were obtained. She has had markedly decreased pain in the left side. Her vital signs remained stable. Her skin is warm and dry and she appears to be in no distress. The repeat lactic acid is possibly a false positive due to tourniquet time. This scenario hand that is considered doubtful that the patient actually has a significant hypoperfused state. She can go home with Lortab, Reglan and Bactrim. Case discussed with Dr. pulido for Gen. surgery. The patient agrees to follow-up with Dr. Najera on Sunday. Should she develop any severe or worsening pain fever nausea vomiting or any abnormal state based on her discretion she understands to return to the ER with special consideration given to the next 8 hours or so. She was advised against taking clonazepam and Lortab concurrently. Diagnosis Primary Impression: Pain in the abdomen Qualified Code: R10.32 - Left lower quadrant pain Additional Impressions: Subcutaneous air Qualified Code: T79.7XXA - Subcutaneous air, initial encounter Nausea vomiting and diarrhea Referrals: Tayo Najera MD 2 days Additional Instructions: You have a choice when it comes to health care, and we are glad that you chose [facility]. Hopefully, we have met your expectations on today's visit. You are welcome to return to [facility] at any time, as we are committed to meeting the health care needs of our community. Med/Other Pt SpecificInfo: Prescription(s) given Scripts Metoclopramide (Reglan)5 Mg Tab5 Mg PO TIDAC PRN (NAUSEA OR VOMITING) #10 TAB Ref 0 Prov:Mars Kaur MD 07/23/16 Sulfamethoxazole-Trimethoprim (Bactrim DS)800-160 Mg Tab1 Tab PO BID #20 TAB Ref 0 Prov:Mars Kaur MD 07/23/16 Hydrocodone-Acetaminophen 5-325 mg Tab1-2 Tab PO Q4H PRN (PAIN) #20 TAB Prov:Mars Kaur MD 07/23/16 Disposition: 01 DISCHARGE HOME Condition: Stable Mars Kaur MD Jul 22, 2016 22:27
[2016-07-22] MEDS ORDERED: IODIXANOL 320 MG/ML 10 ML VIAL (for RAD SPEC) IV ONE (23:09)
[2016-07-22] MEDS ORDERED: BUPR150XL PO (23:20)
--- NOTE | 2016-07-22 23:20 | RADRPT ---
EXAM DATE/TIME: 07/22/2016 23:02 [facility] COMPARISON: CT ABDOMEN & PELVIS W CONTRAST, July 16, 2016, 17:04. INDICATIONS : Vomiting and diarrhea since this morning one week post appendectomy. IV CONTRAST: 46 cc Visipaque (iodixanol) IV ORAL CONTRAST: No oral contrast ingested. RADIATION DOSE: 4.84 CTDIvol (mGy) MEDICAL HISTORY : Hypertension. SURGICAL HISTORY : Appendectomy. section.Tubal ligation. ENCOUNTER: Initial ACUITY: 1 day PAIN SCALE: 7/10 LOCATION: abdomen TECHNIQUE: Volumetric scanning of the abdomen and pelvis was performed. Using automated exposure control and ad justment of the mA and/or kV according to patient size, radiation dose was kept as low as reasonably achievable to obtain optimal diagnostic quality images. FINDINGS: LOWER LUNGS: The visualized lower lungs are clear. LIVER: Homogeneous density without lesion. There is no dilation of the biliary tree. Small calcified gallst ones. Gallbladder is otherwise unremarkable. SPLEEN: Normal size without lesion. PANCREAS: Within normal limits. KIDNEYS: Normal in size and shape. There is no mass, stone or hydronephrosis. A 2.2 cm simple cyst is seen in volving the right kidney. Hounsfield units are 14. ADRENAL GLANDS: Within normal limits. VASCULAR: There is no aortic aneurysm. BOWEL/MESENTERY: The stomach, small bowel, and colon demonstrate no acute abnormality. There is no free intraperitone al air or fluid. ABDOMINAL WALL: There is subcutaneous air tracking along the left anterior abdominal wall. No stranding of the fat or fluid collection. RETROPERITONEUM: There is no lymphadenopathy. BLADDER: No wall thickening or mass. REPRODUCTIVE: Within normal limits. INGUINAL: There is no lymphadenopathy or hernia. MUSCULOSKELETAL: Within normal limits for patient age. CONCLUSION: 1. There is air within the intra-abdominal wall within the left lower quadrant without inflammatory c hange. This could relate to subcutaneous injections of medication. I cannot completely exclude infect ion although I see no inflammatory change. 2. Cholelithiasis. Jose Fields Jr., MD on July 22, 2016 at 23:13 Board Certified Radiologist. This report was verified electronically.
[2016-07-22 23:36] VITALS: BP 122/68; PULSE 89; PULSE 91; RESP 18; TEMP 98.1; TEMP 98.4; O2SAT 100; O2SAT 98
[2016-07-23] MEDS ORDERED: BACT800T5 PO (01:03)
[2016-07-23] MEDS ORDERED: HYDR-3516 PO (01:03)
[2016-07-23] MEDS ORDERED: REGL5TAB PO (01:10)
[2016-07-23] MEDS ORDERED: SULFAMETHOXAZOLE-TRIMETHOPRIM DS 800-160 MG TAB PO ONE (01:15)
[2016-07-23 01:41] VITALS: BP 127/64; PULSE 86; RESP 18; O2SAT 98
[2016-07-23 01:49] VITALS: RESP 18
== END 2016-07-23 01:47 | disposition home or self-care (01) ==
LOC: NEPC 19:27
DX: R10.32 Left lower quadrant pain (principal); T79.7XXA Traumatic subcutaneous emphysema, initial encounter; R11.2 Nausea with vomiting, unspecified; R19.7 Diarrhea, unspecified; I10 Essential (primary) hypertension; E78.00 Pure hypercholesterolemia, unspecified; Z98.890 Other specified postprocedural states; Z86.59 Personal history of other mental and behavioral disorders; Z86.79 Personal history of other diseases of the circulatory system; Z87.19 Personal history of other diseases of the digestive system; Z86.69 Personal history of other diseases of the nervous system and sense organs
CPT/HCPCS: 74177; 80053; 81001; 83605; 83690; 85025; 96361; 96374; 96375; 99284; J1170; J2405; J7030; Q9967

== ENCOUNTER 2017-02-20 19:39 | Inpatient (IN) | payer OTHER ==
[~2017-02-20] VITALS: Ht 165.1 cm; Wt 62.0 kg
[~2017-02-20 19:39] MED LIST changes: -*morphine SULFATE 8 MG/ML PERIprocedure ONLY ONE; -ACETAMINOPHEN 1000 MG/100 ML 100 ML IV SCH; -BUPIVACAINE/EPINEPHRINE 0.5% PF 30 ML VIAL ONE; -CHLORHEXIDINE GLUCONATE 2 % 1 PACK (2 CLOTHS) TOPICAL PRN; -DEXAMETHASONE SOD PHOS 4 MG/ML VIAL IV ONE; -DILA2TAB4 PO; -DO NOT ADM ANY ANTICOAGULANT DRUGS PRN; -FAMOTIDINE 20 MG/2 ML VIAL ONE; -GLYCOPYRROLATE 1 MG/5 ML SYRINGE IV PUSH ONE; -INSULIN HUMAN REGULAR 1,000 UNITS/10 ML VIAL SQ PRN; -KETO10 PO; -KETOROLAC TROMETHAMINE 30 MG/ML (IVP) VIAL IV PUSH ONE; -LACTATED RINGER'S 1000 ML IV PRN; -LIDOCAINE HCL 1% PF 5 ML SYRINGE OTHER ONE; -METOPROLOL TARTRATE 25 MG TAB PO PRN; -MIDAZOLAM HCL 2 MG/2 ML VIAL IV ONE; -MORPHINE SULFATE 4 MG/ML INJ IV PUSH PRN; -NALOXONE HCL 0.4 MG/ML AMP ONE; -NEOSTIGMINE 3 MG/3 ML SYR IV ONE; -ONDANSETRON HCL 4 MG/2 ML VIAL IV ONE; -ONDANSETRON HCL 4 MG/2 ML VIAL IV PUSH PRN; -POVIDONE IODINE 5% (ANTISEPSIS KIT) 4 APPLICATIONS EACH NARE PRN; -PROMETHAZINE INJ 25 MG/ML VIAL ONE; -PROPOFOL 200 MG/20 ML AMP IV ONE; -ROCURONIUM INJ 50 MG/5 ML SYRINGE IV PUSH ONE; -SODIUM CHLORID 0.9% 500 ML IV PRN; -SODIUM CHLORIDE 0.9% FLUSH 10 ML FLUSH IV FLUSH PRN; -SODIUM CHLORIDE 0.9% FLUSH 10 ML FLUSH IV FLUSH SCH; -ZOFR4TAB3 SL; -ceFAZolin 2 GM PREMIX 50 ML IV SCH; -oxyCODONE/ACETAMINOPHEN 5 MG/325 MG TAB PO PRN
[2017-02-20 19:45] VITALS: BP 185/100; PULSE 76; RESP 24; TEMP 98.4; O2SAT 96
[2017-02-20] MEDS ORDERED: SODIUM CHLOR 0.9% 1000 ML INJ 1,000 ML IV SCH (19:50)
[2017-02-20] MEDS ORDERED: KETO10 PO (19:51)
[2017-02-20] MEDS ORDERED: ONDANSETRON HCL 4 MG/2 ML VIAL IVP ONE (20:00)
[2017-02-20] MEDS ORDERED: MORPHINE SULFATE 4 MG/ML INJ IV PUSH ONE (20:00)
[2017-02-20] MEDS ORDERED: SODIUM CHLORIDE 0.9% FLUSH 10 ML FLUSH IV FLUSH PRN (20:00)
--- NOTE | 2017-02-20 20:03 | PD ---
HPI Chief Complaint: Abdominal Pain Time Seen by Provider: 19:50 Travel History International Travel<30 days: No Contact w/Intl Traveler<30days: No Traveled to known affect area: No History of Present Illness HPI 61-year-old female presents to the emergency department by EMS transport from home for complaint of abdominal pain and painful respirations. According the patient she underwent elective cholecystectomy today by Dr. Finesse Molina and Hardik Velazco and was discharged from the hospital proxy 1 PM. Patient underwent laparoscopic cholecystectomy for chronic cholecystitis and cholelithiasis without, dictation. Patient states upon awakening post anesthesia she's had abdominal pain that has been progressively worsening. Patient's had nausea and vomiting. Patient denies hematemesis or coffee-ground emesis. Patient states she's had no bowel movement yesterday or today. Patient does not report flatus. Patient denies any chest pain. Patient does have history of hypertension. She reports she was given a prescription for Toradol for postoperative pain that has provided no relief. Patient rates her pain 9/10 in intensity. No referred neck jaw upper mid scapular back pain extremity pain or chest pain per patient. PFSH Past Medical History Narrative Medical Anxiety depression hypertension dyslipidemia diverticulosis irritable bowel syndrome appendectomy cholecystectomy tubal ligation ectopic ; no tobacco use, occasional alcohol use; nursing notes reviewed Arthritis: No Asthma: No Autoimmune Disease: No Anxiety: Yes Depression: Yes Heart Rhythm Problems: No Cancer: No Cardiovascular Problems: No High Cholesterol: Yes Chemotherapy: No Chest Pain: No Congestive Heart Failure: No COPD: No Cerebrovascular Accident: No Diabetes: No Diverticulitis: Yes Endocrine: No Gastrointestinal Disorders: Yes (GALLBLADDER, DIVERTICULOSIS) GERD: No Genitourinary: No Headaches: Yes Hepatitis: No Hiatal Hernia: No Heparin Induced Thrombocytopen: No Hypertension: Yes Immune Disorder: No Implanted Vascular Access Dvce: No Kidney Stones: No Musculoskeletal: Yes (LOW BONE DENSITY) Neurologic: No Psychiatric: Yes (PANIC ATTACKS) Reproductive: No Respiratory: No Immunizations Current: Yes Migraines: Yes Radiation Therapy: No Renal Failure: No Seizures: No Sickle Cell Disease: No Sleep Apnea: No Thyroid Disease: No Ulcer: No Tetanus Vaccination: < 5 Years Influenza Vaccination: Yes Menopausal: Yes Ectopic : Yes Tubal Ligation: Yes Past Surgical History Abdominal Surgery: No AICD: No Appendectomy: Yes Arteriovenous Shunt: No Cardiac Surgery: No Section: Yes Ear Surgery: No Endocrine Surgery: No Eye Surgery: No Genitourinary Surgery: No Gynecologic Surgery: Yes (, TUBAL LIGATION, ) Insulin Pump: No Joint Replacement: No Neurologic Surgery: No Oral Surgery: No Pacemaker: No Thoracic Surgery: Yes (BILATERAL BREAST CYST REMOVAL) Other Surgery: Yes Social History Alcohol Use: Yes (occasional) Tobacco Use: No Substance Use: No Allergies-Medications (Allergen,Severity, Reaction): Coded Allergies: No Known Allergies (Verified Allergy, Unknown, 02/20/17) Reported Meds & Prescriptions Reported Meds & Active Scripts Active Reported Ketorolac (Ketorolac Tromethamine) 10 Mg Tab 10 Mg PO Q6HR PRN Excedrin Extra Strength (Zsboxig-Lfkxywnqwwmhz-Vyzhdjyb) 250 Mg-250 Mg-65 Mg Tab 250 Mg PO PRN Bupropion HCl ER 24 HR (Bupropion HCl) 300 Mg Tab 300 Mg PO DAILY Wellbutrin Xl 24 HR (Bupropion HCl) 150 Mg Tab 150 Mg PO DAILY Mirtazapine 45 Mg Tab 45 Mg PO HS Atorvastatin (Atorvastatin Calcium) 40 Mg Tab 40 Mg PO HS Dicyclomine (Dicyclomine HCl) 20 Mg Tab 20 Mg PO QID Clonazepam 1 Mg Tab 1 Mg PO BID Metoprolol Tartrate 25 Mg Tab 25 Mg PO BID Review of Systems Except as stated in HPI: all other systems reviewed are Neg General / Constitutional: No: Fever, Chills HENT: No: Congestion Cardiovascular: No: Chest Pain or Discomfort Respiratory: Positive: Shortness of Breath, Pleuritic Pain Gastrointestinal: Positive: Nausea, Vomiting, Abdominal Pain Genitourinary: No: Decreased Urinary Output, Flank Pain Musculoskeletal: No: Myalgias, Arthralgias Skin: No Rash Neurologic: No: Weakness Psychiatric: Positive: Anxiety Hematologic/Lymphatic: No: Lymph Node Enlargement Physical Exam Narrative GENERAL: Well-developed well-nourished female in obvious discomfort and no respiratory distress SKIN: Warm and dry. HEAD: Normocephalic. EYES: No scleral icterus. No injection or drainage. NECK: Supple, trachea midline. No JVD or lymphadenopathy. CARDIOVASCULAR: Regular rate and rhythm without murmurs, gallops, or rubs. RESPIRATORY: Breath sounds equal bilaterally. No accessory muscle use. GASTROINTESTINAL: Abdomen soft, minimally tender to palpation at postsurgical incision sites, nondistended. MUSCULOSKELETAL: No cyanosis, or edema. BACK: Nontender without obvious deformity. No CVA tenderness. Data Data Last Documented VS Vital Signs Date Time Temp Pulse Resp B/P (MAP) Pulse Ox O2 Delivery O2 Flow Rate FiO2 02/20/17 19:45 98.4 76 24 185/100 (128) 96 Orders Orders Complete Blood Count With Diff (02/20/17 19:50) Comprehensive Metabolic Panel (02/20/17 19:50) Lipase (02/20/17 19:50) Lactic Acid (02/20/17 19:50) Prothrombin Time / Inr (Pt) (02/20/17 19:50) Act Partial Throm Time (Ptt) (02/20/17 19:50) Iv Access Insert/Monitor (02/20/17 19:50) Ecg Monitoring (02/20/17 19:50) Oximetry (02/20/17 19:50) Morphine Inj (Morphine Inj) (02/20/17 20:00) Ondansetron Inj (Zofran Inj) (02/20/17 20:00) Sodium Chlor 0.9% 1000 Ml Inj (Ns 1000 M (02/20/17 19:50) Sodium Chloride 0.9% Flush (Ns Flush) (02/20/17 20:00) Electrocardiogram (02/20/17 19:50) Chest, Single Ap (02/20/17 19:50) Troponin I (02/20/17 19:50) MDM Medical Decision Making Medical Screen Exam Complete: Yes Emergency Medical Condition: Yes Medical Record Reviewed: Yes Differential Diagnosis Pleurisy, PE, ACS, NM, post laparoscopic free air/retained insufflation CO2, bile leakage, viscus injury Narrative Course Patient placed on property assessment monitor with continuous oximetry IV access obtained EKG performed consistent with normal sinus rhythm rate [address] elevation or injury pattern nonspecific T-wave inversion V1 V2; patient Nothing by mouth administered maintenance IV fluid at normal saline 125 mL per hour and administered Zofran 4 mg IV along with morphine sulfate 4 mg IV. Portable chest x-ray ordered. Jayde Dueñas MD Feb 20, 2017 20:03
[2017-02-20 20:13] VITALS: BP 159/77
[2017-02-20 20:14] VITALS: RESP 16
[2017-02-20 20:23] LABS: BASOPHIL % 0.2 % (0.0-2.0); HEMATOCRIT 37.8 % (35.0-46.0); HEMO FLAGS DIFF FINAL; LYMPHOCYTE # 0.8 TH/MM3 (1.0-4.8); MEAN CELL VOLUME 86.4 FL (80.0-100.0); MEAN CORPUSCULAR HEMOGLOBIN 27.5 PG (27.0-34.0); MEAN CORPUSCULAR HGB CONC 31.8 % (32.0-36.0); NEUT % 87.8 % (16.0-70.0); PLATELET COUNT 256 TH/MM3 (150-450); RED BLOOD COUNT 4.37 MIL/MM3 (4.00-5.30); WHITE BLOOD COUNT 19.3 TH/MM3 (4.0-11.0)
[2017-02-20 20:38] LABS: APTT (PATIENT) 25.3 SEC (24.3-30.1); PROTHROMBIN TIME - PATIENT 10.7 SEC (9.8-11.6)
[2017-02-20 20:44] LABS: ANION GAP 10 MEQ/L (5-15); AST (GOT) 58 U/L (15-37); BICARBONATE 26.2 MEQ/L (21.0-32.0); BLOOD UREA NITROGEN 15 MG/DL (7-18); CHLORIDE 103 MEQ/L (98-107); GLOMERULAR FILTRATION RATE 50 ML/MIN (>89); POTASSIUM 3.3 MEQ/L (3.5-5.1); SODIUM (NA) 139 MEQ/L (136-145)
[2017-02-20 20:49] LABS: ALKALINE PHOSPHATASE 96 U/L (45-117); ALT (GPT) 44 U/L (10-53); TOTAL BILIRUBIN ADULT 0.4 MG/DL (0.2-1.0)
[2017-02-20] MEDS ORDERED: PIPERACIL-TAZO 3.375 GM PREMIX 50 ML IV ONE (21:00)
[2017-02-20] MEDS ORDERED: SODIUM CHLORID 0.9% 500 ML INJ 500 ML IV ONE (21:00)
--- NOTE | 2017-02-20 21:07 | RADRPT ---
EXAM DATE/TIME: 02/20/2017 20:15 [facility] COMPARISON: CHEST SINGLE AP, July 16, 2016, 18:30. INDICATIONS : Lower chest and stomach pain. Recent gallbladder surgery. MEDICAL HISTORY : Hypertension. SURGICAL HISTORY : Appendectomy. section. Tubal ligation. ENCOUNTER: Initial ACUITY: 3 days PAIN SCORE: 5/10 LOCATION: Bilateral chest FINDINGS: There are patchy areas of infiltrate or atelectasis adjacent to the left hemidiaphragm with mild obsc uration of the hemidiaphragm or blunting left costophrenic angle. Minimal horizontal linear opacitie s are present in the lateral right lower lung. The upper lungs are clear. The heart is normal in si ze. CONCLUSION: Small area of infiltrate or atelectasis at the lung left lung base and faint opacity in the lower lat eral right lung. Recommend serial films. Jose Seth MD on February 20, 2017 at 21:05 Board Certified Radiologist. This report was verified electronically.
[2017-02-20] MEDS ORDERED: IOHEXOL 350 MG/ML 10 ML VIAL (for RAD DIAG) IVCONTRAST ONE (21:40)
[2017-02-20 21:42] VITALS: BP 151/72; PULSE 88; RESP 18; O2SAT 97
--- NOTE | 2017-02-20 22:17 | RADRPT ---
EXAM DATE/TIME: 02/20/2017 21:15 [facility] COMPARISON: No previous studies available for comparison. INDICATIONS : Shortness of breath. Patient had cholecystectomy today. IV CONTRAST: 100 cc Omnipaque 350 (iohexol) IV ; Cumulative dose for multiple exams. RADIATION DOSE: 6.65 CTDIvol (mGy) MEDICAL HISTORY : Hypertension. SURGICAL HISTORY : Tubal ligation. ENCOUNTER: Initial ACUITY: 1 day PAIN SCALE: 0/10 LOCATION: chest TECHNIQUE: Volumetric scanning of the chest was performed using a pulmonary embolism protocol MIP images were re constructed. Using automated exposure control and adjustment of the mA and/or kV according to patien t size, radiation dose was kept as low as reasonably achievable to obtain optimal diagnostic quality images. DICOM format image data is available electronically for review and comparison. Follow-up recommendations for detected pulmonary nodules are based at a minimum on nodule size and pa tient risk factors according to Fleischner Society Guidelines. FINDINGS: PULMONARY ARTERIES: No filling defects are seen in the pulmonary arteries through the segmental level. LUNGS: Patchy areas of partially consolidated infiltrate are present in the posterior right midlung and in t he posterior left lower lung. PLEURAE: There is no pleural thickening or pleural effusion. MEDIASTINUM: There is good visualization of the great vessels of the middle mediastinum. No evidence of mediastin al or hilar adenopathy/mass. CONCLUSION: 1. The study is negative for pulmonary embolism. 2. Bilateral mid and lower lung posterior partially consolidative infiltrates. 3. Incidental note of ascites. Jose Seth MD on February 20, 2017 at 22:14 Board Certified Radiologist. This report was verified electronically.
--- NOTE | 2017-02-20 22:32 | RADRPT ---
EXAM DATE/TIME: 02/20/2017 21:15 [facility] COMPARISON: CT ABDOMEN & PELVIS W CONTRAST, July 22, 2016, 23:02. INDICATIONS : Abdominal pain with vomiting post cholecystectomy today. IV CONTRAST: 100 cc Omnipaque 350 (iohexol) IV ; Cumulative dose for multiple exams. ORAL CONTRAST: No oral contrast ingested. RADIATION DOSE: 8.77 CTDIvol (mGy) MEDICAL HISTORY : Hypertension. Diverticulitis. SURGICAL HISTORY : Appendectomy. Tubal ligation. ENCOUNTER: Initial ACUITY: 1 day PAIN SCALE: 10/10 LOCATION: Abdomen. TECHNIQUE: Volumetric scanning of the abdomen and pelvis was performed. Using automated exposure control and ad justment of the mA and/or kV according to patient size, radiation dose was kept as low as reasonably achievable to obtain optimal diagnostic quality images. DICOM format image data is available electro nically for review and comparison. FINDINGS: There are patchy areas of infiltrate in the posterior lower lungs bilaterally without evidence of ple ural effusion. There is a moderate amount of free fluid about the superior and lateral aspect of the liver which machado s not track into the right paracolic gutter. A small amount of fluid is seen in the cholecystectomy bed and there is a solitary small alverto of gas present. There is also free air seen along the anteri or margin of the liver and in the anterior pararenal space/lesser sac, characteristic of recent surge ry. No focal abnormalities seen within the parenchyma of the liver or spleen. The stomach is distended c ontaining fluid. The head, body, and tail the pancreas is intact. Right upper pole renal cyst measu res 2.4 cm. No evidence of hydronephrosis on either side. No dilated loops of small or large bowel. The urinary bladder is distended. There is moderate free fluid in the dependent pelvis measuring u p to 3 cm in AP dimension. CONCLUSION: 1. Postsurgical changes from cholecystectomy earlier today including fluid about the superior margin of the liver, anterior pararenal space, and dependent pelvis. There is also gas about the anterior p ararenal space and anterior to the liver. 2. Bilateral lower lung partially consolidative infiltrates. 3. Moderate distention of the stomach, predominantly containing fluid.. Jose Seth MD on February 20, 2017 at 22:25 Board Certified Radiologist. This report was verified electronically.
[2017-02-20 22:59] VITALS: BP 161/79; PULSE 88; RESP 20; O2SAT 97
[2017-02-20] MEDS ORDERED: HYDROmorphone HCL PF 0.5 MG/0.5 ML SYRINGE IV PUSH ONE (23:00)
[2017-02-20] MEDS: D5-1/2 NS + KCL 20 MEQ INJ 1,000 ML IV SCH (23:14)
[2017-02-20 23:51] VITALS: BP 168/79; PULSE 88; RESP 20; TEMP 97.6; O2SAT 96
[2017-02-21] MEDS: ONDANSETRON HCL 4 MG/2 ML VIAL IV PUSH PRN (00:14)
[2017-02-21] MEDS: MORPHINE SULFATE 4 MG/ML INJ IV PUSH PRN ×4 (00:15→11:28)
[2017-02-21 04:37] VITALS: BP 139/75; PULSE 97; RESP 22; TEMP 98.5; O2SAT 93
[2017-02-21 04:53] LABS: AUTOMATED NEUTROPHIL # 17.5 TH/MM3 (1.8-7.7); BASOPHIL % 0.2 % (0.0-2.0); HEMATOCRIT 37.6 % (35.0-46.0); LYMPH % 4.9 % (9.0-44.0); MEAN CELL VOLUME 86.6 FL (80.0-100.0); MEAN CORPUSCULAR HGB CONC 32.4 % (32.0-36.0); MONO % 4.7 % (0.0-8.0); NEUT % 90.2 % (16.0-70.0); PLATELET COUNT 214 TH/MM3 (150-450); RED BLOOD COUNT 4.34 MIL/MM3 (4.00-5.30); WHITE BLOOD COUNT 19.4 TH/MM3 (4.0-11.0)
[2017-02-21 05:00] LABS: HEMO FLAGS AUTO DIFF
[2017-02-21 06:45] LABS: BANDS 18 % (0-6); NEUTROPHIL # MANUAL DIFF 17.3 TH/MM3 (1.8-7.7); POLYS (SEG NEUTROPHILS) 71 % (16-70); WBC DIFF SAMPLE 100
[2017-02-21 06:46] LABS: SCAN/DIFF FINAL DIFF MANUAL
[2017-02-21 07:13] VITALS: BP 141/74; PULSE 88; RESP 24; TEMP 98.6; O2SAT 94
[2017-02-21] MEDS: D5-1/2 NS + KCL 20 MEQ INJ 1,000 ML IV SCH ×3 (07:41→21:04)
--- NOTE | 2017-02-21 09:42 | EKG ---
Date Performed: 02/20/2017 Time Performed: 19:46:54 PTAGE: 61 years EKG: Sinus rhythm WITH SINUS ARRHYTHMIA NORMAL ECG PREVIOUS TRACING : 07/16/2016 18.23 DOCTOR: Sergio Gómez Interpretating Date/Time 02/21/2017 09:40:53
[2017-02-21 11:32] VITALS: BP 129/70; PULSE 90; RESP 24; TEMP 97.7; O2SAT 94
[2017-02-21 12:14] LABS: AUTOMATED NEUTROPHIL # 18.6 TH/MM3 (1.8-7.7); BASOPHIL % 0.1 % (0.0-2.0); HEMATOCRIT 34.2 % (35.0-46.0); HEMO FLAGS DIFF FINAL; LYMPH % 5.9 % (9.0-44.0); LYMPHOCYTE # 1.2 TH/MM3 (1.0-4.8); MEAN CELL VOLUME 86.4 FL (80.0-100.0); MEAN CORPUSCULAR HEMOGLOBIN 28.6 PG (27.0-34.0); MEAN CORPUSCULAR HGB CONC 33.1 % (32.0-36.0); MONO % 5.5 % (0.0-8.0); NEUT % 88.5 % (16.0-70.0); PLATELET COUNT 199 TH/MM3 (150-450); RED BLOOD COUNT 3.96 MIL/MM3 (4.00-5.30); RED CELL DISTRIBUTION WIDTH 14.9 % (11.6-17.2)
[2017-02-21 12:33] LABS: BICARBONATE 26.7 MEQ/L (21.0-32.0); POTASSIUM 3.5 MEQ/L (3.5-5.1)
[2017-02-21 12:37] LABS: INDIRECT BILIRUBIN 0.2 MG/DL (0.0-0.8); TOTAL BILIRUBIN ADULT 0.4 MG/DL (0.2-1.0)
--- NOTE | 2017-02-21 14:08 | HHI.PR ---
Subjective Subjective Notes The patient underwent laparoscopic cholecystectomy as an outpatient yesterday. Yesterday evening she returned to the emergency department by ambulance due to persistent and increasing abdominal pain. She had no nausea vomiting or fever. She states the pain was worse when taking a deep breath and therefore she was not taking depressed. On admission she was found to have atelectasis in both lower lung perez. CT scan of the abdomen and pelvis showed [id number] amount of fluid as expected after surgery with a small amount of air as well. Other than postoperative changes in the right upper quadrant there are no significant findings. Laboratory work showed a mild lactic acidosis as well as a leukocytosis but again no other abnormalities were noted. She was placed in observation overnight. Since then she has had persistent pain requiring morphine (which is been minimally effective) on a constant basis. She is voided but has not passed any flatus. She has had no nausea or vomiting. Objective Vitals/I&O Vital Signs Date Time Temp Pulse Resp B/P (MAP) Pulse Ox O2 Delivery O2 Flow Rate FiO2 02/21/17 11:32 97.7 90 24 129/70 (89) 94 02/20/17 22:59 Nasal Cannula 2.00 Labs Laboratory Tests Test 02/20/17 20:00 02/20/17 23:08 02/21/17 04:41 02/21/17 11:50 White Blood Count 19.3 19.4 21.0 Red Blood Count 4.37 4.34 3.96 Hemoglobin 12.0 12.2 11.3 Hematocrit 37.8 37.6 34.2 Mean Corpuscular Volume 86.4 86.6 86.4 Mean Corpuscular Hemoglobin 27.5 28.0 28.6 Mean Corpuscular Hemoglobin Concent 31.8 32.4 33.1 Red Cell Distribution Width 15.0 15.0 14.9 Platelet Count 256 214 199 Mean Platelet Volume 7.6 7.5 8.0 Neutrophils (%) (Auto) 87.8 90.2 88.5 Lymphocytes (%) (Auto) 4.0 4.9 5.9 Monocytes (%) (Auto) 8.0 4.7 5.5 Eosinophils (%) (Auto) 0.0 0.0 0.0 Basophils (%) (Auto) 0.2 0.2 0.1 Neutrophils # (Auto) 17.0 17.5 18.6 Lymphocytes # (Auto) 0.8 1.0 1.2 Monocytes # (Auto) 1.5 0.9 1.1 Eosinophils # (Auto) 0.0 0.0 0.0 Basophils # (Auto) 0.0 0.0 0.0 CBC Comment DIFF FINAL AUTO DIFF DIFF FINAL Differential Comment FINAL DIFF MANUAL Prothrombin Time 10.7 Prothromb Time International Ratio 1.0 Activated Partial Thromboplast Time 25.3 Blood Urea Nitrogen 15 11 Creatinine 1.10 0.83 Random Glucose 208 151 Total Protein 7.4 6.3 Albumin 3.5 2.9 Calcium Level 8.5 7.9 Alkaline Phosphatase 96 80 Aspartate Amino Transf (AST/SGOT) 58 27 Alanine Aminotransferase (ALT/SGPT) 44 37 Total Bilirubin 0.4 0.4 Sodium Level 139 137 Potassium Level 3.3 3.5 Chloride Level 103 102 Carbon Dioxide Level 26.2 26.7 Anion Gap 10 8 Estimat Glomerular Filtration Rate 50 70 Lactic Acid Level 2.2 4.0 3.9 2.2 Troponin I LESS THAN 0.02 Lipase 59 Differential Total Cells Counted 100 Neutrophils % (Manual) 71 Band Neutrophils % 18 Lymphocytes % 8 Monocytes % 3 Neutrophils # (Manual) 17.3 Direct Bilirubin 0.2 Indirect Bilirubin 0.2 Date/Time Source Procedure Growth Status 02/20/17 21:35 Blood Peripheral Aerobic Blood Culture - Preliminary NO GROWTH IN 1 DAY Resulted 02/20/17 21:35 Blood Peripheral Anaerobic Blood Culture - Preliminary NO GROWTH IN 1 DAY Resulted Radiology Vital Signs Date Time Temp Pulse Resp B/P (MAP) Pulse Ox O2 Delivery O2 Flow Rate FiO2 02/21/17 11:32 97.7 90 24 129/70 (89) 94 02/21/17 07:13 98.6 88 24 141/74 (96) 94 02/21/17 04:37 98.5 97 22 139/75 (96) 93 02/20/17 23:51 97.6 88 20 168/79 (108) 96 02/20/17 23:45 02/20/17 22:59 88 20 161/79 (106) 97 Nasal Cannula 2.00 02/20/17 21:42 88 18 151/72 (98) 97 Nasal Cannula 2.00 02/20/17 20:14 16 02/20/17 20:13 159/77 (104) 02/20/17 19:45 98.4 76 24 185/100 (128) 96 Cardiovascular: Regular Lungs: Clear Abdomen: Non-distended, Post-op tenderness Extremities: No edema Narrative Exam She has ecchymosis around her incisions but no erythema. Her abdomen is slightly distended but totally benign and palpation other than tenderness in the area of the incisions. A/P Assessment and Plan Impression: Postoperative day #1 status post uncomplicated laparoscopic cholecystectomy. She has a persistent leukocytosis. Her vital signs remained completely stable. Liver function tests are completely normal at this point. Plan: In view of the patient's persistent pain and inability to take a regular diet, I will admit her to the hospital for further observation and treatment as necessary. Finesse Molina MD Feb 21, 2017 14:08
[2017-02-21] MEDS: LEVOFLOXACIN 500 MG PREMIX INJ 100 ML IV SCH (14:57)
[2017-02-21] MEDS: HYDROmorphone HCL PF 1 MG/ML VIAL IV PUSH PRN ×3 (14:58→20:57)
[2017-02-21] MEDS ORDERED: HYDROmorphone HCL PF 1 MG/ML VIAL IV PUSH PRN (15:00)
[2017-02-21 16:00] VITALS: BP 153/80; PULSE 89; RESP 17; TEMP 96.6; O2SAT 97
[2017-02-21] MEDS: DICYCLOMINE HCL 20 MG TAB PO SCH ×2 (17:46→20:53)
[2017-02-21 20:17] VITALS: BP 141/87; PULSE 95; RESP 21; TEMP 98.8; O2SAT 92
[2017-02-21] MEDS: buPROPion HCL 100 MG SUSTAINED RELEASE TAB PO SCH (20:53)
[2017-02-21] MEDS: clonazePAM 1 MG TAB PO SCH (20:54)
[2017-02-21] MEDS ORDERED: METOPROLOL TARTRATE 25 MG TAB PO SCH (21:00)
[2017-02-21] MEDS ORDERED: ATORVASTATIN 40 MG TAB PO SCH (21:00)
[2017-02-21] MEDS ORDERED: MIRTAZAPINE 15 MG TAB PO SCH (21:00)
[2017-02-22] VITALS (8 sets, daily range): BP systolic 119–152; BP diastolic 70–91; PULSE 75–101; RESP 18–20; TEMP 95.6–98.6; O2SAT 92–95
[2017-02-22] MEDS: HYDROmorphone HCL PF 1 MG/ML VIAL IV PUSH PRN ×3 (00:59→06:30)
[2017-02-22] MEDS: ONDANSETRON HCL 4 MG/2 ML VIAL IV PUSH PRN ×3 (01:02→10:01)
[2017-02-22] MEDS: D5-1/2 NS + KCL 20 MEQ INJ 1,000 ML IV SCH ×4 (04:09→21:14)
[2017-02-22 05:20] LABS: AUTOMATED NEUTROPHIL # 10.3 TH/MM3 (1.8-7.7); BASOPHIL % 0.1 % (0.0-2.0); EOSINOPHIL % 0.3 % (0.0-4.0); HEMATOCRIT 32.9 % (35.0-46.0); HEMO FLAGS DIFF FINAL; LYMPH % 6.9 % (9.0-44.0); LYMPHOCYTE # 0.8 TH/MM3 (1.0-4.8); MEAN CELL VOLUME 85.8 FL (80.0-100.0); MEAN CORPUSCULAR HEMOGLOBIN 28.4 PG (27.0-34.0); MEAN CORPUSCULAR HGB CONC 33.1 % (32.0-36.0); MONO % 6.9 % (0.0-8.0); NEUT % 85.8 % (16.0-70.0); PLATELET COUNT 176 TH/MM3 (150-450); RED BLOOD COUNT 3.84 MIL/MM3 (4.00-5.30)
[2017-02-22 05:46] LABS: BICARBONATE 25.6 MEQ/L (21.0-32.0); POTASSIUM 3.7 MEQ/L (3.5-5.1)
[2017-02-22 05:49] LABS: INDIRECT BILIRUBIN 0.3 MG/DL (0.0-0.8); TOTAL BILIRUBIN ADULT 0.6 MG/DL (0.2-1.0)
--- NOTE | 2017-02-22 07:45 | HHI.PR ---
Subjective Subjective Notes states pain slightly improved no flatus no emesis Objective Vitals/I&O Vital Signs Date Time Temp Pulse Resp B/P (MAP) Pulse Ox O2 Delivery O2 Flow Rate FiO2 02/22/17 00:28 97.5 75 18 137/76 (96) 94 02/20/17 22:59 Nasal Cannula 2.00 Labs Laboratory Tests Test 02/21/17 11:50 02/22/17 05:01 White Blood Count 21.0 12.0 Red Blood Count 3.96 3.84 Hemoglobin 11.3 10.9 Hematocrit 34.2 32.9 Mean Corpuscular Volume 86.4 85.8 Mean Corpuscular Hemoglobin 28.6 28.4 Mean Corpuscular Hemoglobin Concent 33.1 33.1 Red Cell Distribution Width 14.9 15.0 Platelet Count 199 176 Mean Platelet Volume 8.0 8.0 Neutrophils (%) (Auto) 88.5 85.8 Lymphocytes (%) (Auto) 5.9 6.9 Monocytes (%) (Auto) 5.5 6.9 Eosinophils (%) (Auto) 0.0 0.3 Basophils (%) (Auto) 0.1 0.1 Neutrophils # (Auto) 18.6 10.3 Lymphocytes # (Auto) 1.2 0.8 Monocytes # (Auto) 1.1 0.8 Eosinophils # (Auto) 0.0 0.0 Basophils # (Auto) 0.0 0.0 CBC Comment DIFF FINAL DIFF FINAL Differential Comment Blood Urea Nitrogen 11 8 Creatinine 0.83 0.66 Random Glucose 151 123 Total Protein 6.3 6.1 Albumin 2.9 2.5 Calcium Level 7.9 7.7 Alkaline Phosphatase 80 87 Aspartate Amino Transf (AST/SGOT) 27 18 Alanine Aminotransferase (ALT/SGPT) 37 29 Total Bilirubin 0.4 0.6 Direct Bilirubin 0.2 0.3 Sodium Level 137 138 Potassium Level 3.5 3.7 Chloride Level 102 105 Carbon Dioxide Level 26.7 25.6 Anion Gap 8 7 Estimat Glomerular Filtration Rate 70 91 Lactic Acid Level 2.2 Indirect Bilirubin 0.2 0.3 Date/Time Source Procedure Growth Status 02/20/17 21:35 Blood Peripheral Aerobic Blood Culture - Preliminary NO GROWTH IN 1 DAY Resulted 02/20/17 21:35 Blood Peripheral Anaerobic Blood Culture - Preliminary NO GROWTH IN 1 DAY Resulted Radiology Vital Signs Date Time Temp Pulse Resp B/P (MAP) Pulse Ox O2 Delivery O2 Flow Rate FiO2 02/21/17 11:32 97.7 90 24 129/70 (89) 94 02/21/17 07:13 98.6 88 24 141/74 (96) 94 02/21/17 04:37 98.5 97 22 139/75 (96) 93 02/20/17 23:51 97.6 88 20 168/79 (108) 96 02/20/17 23:45 02/20/17 22:59 88 20 161/79 (106) 97 Nasal Cannula 2.00 02/20/17 21:42 88 18 151/72 (98) 97 Nasal Cannula 2.00 02/20/17 20:14 16 02/20/17 20:13 159/77 (104) 02/20/17 19:45 98.4 76 24 185/100 (128) 96 Abdomen: Post-op tenderness Extremities: Perfused Wound Wound : Wound Location: Abdomen Appearance: Clean & Dry A/P Assessment and Plan pod #2 s/p lap nikole normal post op changes can d/c later today if pain better Segun Ferreira MD Feb 22, 2017 07:45
[2017-02-22] MEDS ORDERED: DILA2TAB4 PO (07:47)
[2017-02-22] MEDS ORDERED: ASPIRIN ACETAMINOPHEN CAFFEINE PO SCH (08:00)
[2017-02-22] MEDS ORDERED: buPROPion HCL 150 MG EXTENDED RELEASE TAB PO SCH ×2 (09:00)
[2017-02-22] MEDS ORDERED: PNEUMOCOCCAL POLYVALENT INJ 25 MCG/0.5 ML SYR IM ONE (10:00)
[2017-02-22] MEDS ORDERED: INFLUENZA VIRUS VACCINE (QUADRIVALENT) 0.5 ML SYR IM ONE (10:00)
[2017-02-22] MEDS: KETOROLAC TROMETHAMINE 10 MG TAB PO PRN ×3 (10:01→21:50)
[2017-02-22] MEDS: DOCUSATE SODIUM 100 MG CAP PO SCH (10:05)
[2017-02-22] MEDS: DICYCLOMINE HCL 20 MG TAB PO SCH ×4 (10:06→20:07)
[2017-02-22] MEDS: METOPROLOL TARTRATE 25 MG TAB PO SCH ×2 (10:06→20:06)
[2017-02-22] MEDS: buPROPion HCL 100 MG SUSTAINED RELEASE TAB PO SCH ×2 (10:06→20:06)
[2017-02-22] MEDS: clonazePAM 1 MG TAB PO SCH ×2 (10:06→20:06)
[2017-02-22] MEDS: HYDROmorphone HCL 2 MG TAB PO PRN ×2 (13:46→20:07)
[2017-02-22] MEDS: LEVOFLOXACIN 500 MG PREMIX INJ 100 ML IV SCH (13:47)
[2017-02-22] MEDS: ATORVASTATIN 40 MG TAB PO SCH (20:06)
[2017-02-22] MEDS: MIRTAZAPINE 15 MG TAB PO SCH (20:06)
[2017-02-23] VITALS: BP 158/78; PULSE 98; RESP 18; TEMP 98.6; O2SAT 94
[2017-02-23] MEDS: HYDROmorphone HCL 2 MG TAB PO PRN ×3 (01:59→19:30)
[2017-02-23] MEDS: D5-1/2 NS + KCL 20 MEQ INJ 1,000 ML IV SCH ×3 (04:38→17:58)
[2017-02-23] MEDS: ONDANSETRON HCL 4 MG/2 ML VIAL IV PUSH PRN (05:24)
[2017-02-23] MEDS: KETOROLAC TROMETHAMINE 10 MG TAB PO PRN ×2 (05:24→21:32)
[2017-02-23 08:00] VITALS: BP 158/89; PULSE 92; RESP 15; TEMP 97.4; O2SAT 94
[2017-02-23] MEDS: DOCUSATE SODIUM 100 MG CAP PO SCH (09:21)
[2017-02-23] MEDS: METOPROLOL TARTRATE 25 MG TAB PO SCH ×2 (09:21→21:30)
[2017-02-23] MEDS: DICYCLOMINE HCL 20 MG TAB PO SCH ×4 (09:21→21:30)
[2017-02-23] MEDS: clonazePAM 1 MG TAB PO SCH ×2 (09:21→21:30)
[2017-02-23] MEDS: MAGNESIUM HYDROXIDE SUSP 30 ML CUP PO PRN (09:26)
[2017-02-23] MEDS: buPROPion HCL 100 MG SUSTAINED RELEASE TAB PO SCH ×2 (09:26→21:30)
--- NOTE | 2017-02-23 11:50 | HHI.PR ---
Subjective Subjective Notes pt states pain 6-8 no flatus Objective Vitals/I&O Vital Signs Date Time Temp Pulse Resp B/P (MAP) Pulse Ox O2 Delivery O2 Flow Rate FiO2 02/23/17 09:25 16 02/23/17 08:00 97.4 92 158/89 (112) 94 02/22/17 12:33 Nasal Cannula 1.00 Labs Date/Time Source Procedure Growth Status 02/20/17 21:35 Blood Peripheral Aerobic Blood Culture - Preliminary NO GROWTH IN 3 DAYS Resulted 02/20/17 21:35 Blood Peripheral Anaerobic Blood Culture - Preliminary NO GROWTH IN 3 DAYS Resulted Radiology Vital Signs Date Time Temp Pulse Resp B/P (MAP) Pulse Ox O2 Delivery O2 Flow Rate FiO2 02/21/17 11:32 97.7 90 24 129/70 (89) 94 02/21/17 07:13 98.6 88 24 141/74 (96) 94 02/21/17 04:37 98.5 97 22 139/75 (96) 93 02/20/17 23:51 97.6 88 20 168/79 (108) 96 02/20/17 23:45 02/20/17 22:59 88 20 161/79 (106) 97 Nasal Cannula 2.00 02/20/17 21:42 88 18 151/72 (98) 97 Nasal Cannula 2.00 02/20/17 20:14 16 02/20/17 20:13 159/77 (104) 02/20/17 19:45 98.4 76 24 185/100 (128) 96 Abdomen: Post-op tenderness Extremities: Perfused Wound Wound : Wound Location: Abdomen Appearance: Clean & Dry A/P Assessment and Plan pod #3 s/p lap nikole normal post op changes Dulcolax for bm advance diet once pass gas can d/c later today if pain better Segun Ferreira MD Feb 23, 2017 11:50
[2017-02-23 12:00] VITALS: BP 164/92; PULSE 86; RESP 17; TEMP 96.9; O2SAT 95
[2017-02-23] MEDS: BISACODYL 10 MG SUPP RECTAL SCH (12:11)
[2017-02-23] MEDS: BISACODYL EC 5 MG TABEC PO PRN (12:11)
[2017-02-23] MEDS: LEVOFLOXACIN 500 MG PREMIX INJ 100 ML IV SCH (14:57)
[2017-02-23 16:00] VITALS: BP 153/75; PULSE 98; RESP 16; TEMP 97.7; O2SAT 94
[2017-02-23 20:49] VITALS: BP 154/71; PULSE 90; RESP 20; TEMP 97.1; O2SAT 97
[2017-02-23] MEDS: MIRTAZAPINE 15 MG TAB PO SCH (21:30)
[2017-02-23] MEDS: ATORVASTATIN 40 MG TAB PO SCH (21:30)
[2017-02-24] MEDS: D5-1/2 NS + KCL 20 MEQ INJ 1,000 ML IV SCH ×5 (00:04→20:02)
[2017-02-24 01:17] VITALS: BP 153/88; PULSE 99; RESP 20; TEMP 100; O2SAT 93
[2017-02-24] MEDS: HYDROmorphone HCL 2 MG TAB PO PRN ×3 (05:26→22:27)
[2017-02-24] MEDS: ONDANSETRON HCL 4 MG/2 ML VIAL IV PUSH PRN ×2 (05:55→16:17)
[2017-02-24 08:00] VITALS: BP 162/91; PULSE 97; RESP 17; TEMP 96.6; O2SAT 94
[2017-02-24] MEDS: BISACODYL 10 MG SUPP RECTAL SCH (09:00)
[2017-02-24] MEDS: METOPROLOL TARTRATE 25 MG TAB PO SCH ×2 (09:00→20:01)
[2017-02-24] MEDS: clonazePAM 1 MG TAB PO SCH ×2 (09:00→20:01)
[2017-02-24] MEDS: DICYCLOMINE HCL 20 MG TAB PO SCH ×4 (09:00→20:01)
[2017-02-24] MEDS: DOCUSATE SODIUM 100 MG CAP PO SCH (09:00)
[2017-02-24] MEDS: buPROPion HCL 100 MG SUSTAINED RELEASE TAB PO SCH ×2 (09:00→20:01)
[2017-02-24 12:00] VITALS: BP 150/87; PULSE 85; RESP 18; TEMP 96.3; O2SAT 92
[2017-02-24 16:00] VITALS: BP 169/97; PULSE 96; RESP 19; TEMP 98; O2SAT 94
[2017-02-24] MEDS: LEVOFLOXACIN 500 MG PREMIX INJ 100 ML IV SCH (16:16)
[2017-02-24 20:00] VITALS: BP 153/87; PULSE 79; RESP 16; TEMP 98.4; O2SAT 94
[2017-02-24] MEDS: ATORVASTATIN 40 MG TAB PO SCH (20:01)
[2017-02-24] MEDS: MIRTAZAPINE 15 MG TAB PO SCH (20:01)
[2017-02-24] MEDS: KETOROLAC TROMETHAMINE 10 MG TAB PO PRN (20:04)
[2017-02-25 00:16] VITALS: BP 158/88; PULSE 96; RESP 16; TEMP 99.4; O2SAT 93
[2017-02-25] MEDS: HYDROmorphone HCL 2 MG TAB PO PRN ×2 (05:24→13:49)
[2017-02-25 08:00] VITALS: BP 168/95; PULSE 106; RESP 16; TEMP 100; O2SAT 94
--- NOTE | 2017-02-25 08:11 | HHI.PR ---
Subjective Subjective Notes pt states pain improved pos flatus Objective Vitals/I&O Vital Signs Date Time Temp Pulse Resp B/P (MAP) Pulse Ox O2 Delivery O2 Flow Rate FiO2 02/25/17 00:16 99.4 96 16 158/88 (111) 93 02/22/17 12:33 Nasal Cannula 1.00 Labs Date/Time Source Procedure Growth Status 02/20/17 21:35 Blood Peripheral Aerobic Blood Culture - Preliminary NO GROWTH IN 4 DAYS Resulted 02/20/17 21:35 Blood Peripheral Anaerobic Blood Culture - Preliminary NO GROWTH IN 4 DAYS Resulted Radiology Vital Signs Date Time Temp Pulse Resp B/P (MAP) Pulse Ox O2 Delivery O2 Flow Rate FiO2 02/21/17 11:32 97.7 90 24 129/70 (89) 94 02/21/17 07:13 98.6 88 24 141/74 (96) 94 02/21/17 04:37 98.5 97 22 139/75 (96) 93 02/20/17 23:51 97.6 88 20 168/79 (108) 96 02/20/17 23:45 02/20/17 22:59 88 20 161/79 (106) 97 Nasal Cannula 2.00 02/20/17 21:42 88 18 151/72 (98) 97 Nasal Cannula 2.00 02/20/17 20:14 16 02/20/17 20:13 159/77 (104) 02/20/17 19:45 98.4 76 24 185/100 (128) 96 Abdomen: Post-op tenderness Extremities: Perfused Wound Wound : Wound Location: Abdomen Appearance: Clean & Dry A/P Assessment and Plan pod #5 s/p lap nikole normal post op changes Dulcolax for bm advance diet can d/c later today Segun Ferreira MD Feb 25, 2017 08:11
[2017-02-25] MEDS ORDERED: ZOFR4TAB3 SL (08:13)
[2017-02-25] MEDS: DOCUSATE SODIUM 100 MG CAP PO SCH (08:26)
[2017-02-25] MEDS: DICYCLOMINE HCL 20 MG TAB PO SCH ×2 (08:26→12:17)
[2017-02-25] MEDS: MAGNESIUM HYDROXIDE SUSP 30 ML CUP PO PRN (08:26)
[2017-02-25] MEDS: clonazePAM 1 MG TAB PO SCH (08:26)
[2017-02-25] MEDS: METOPROLOL TARTRATE 25 MG TAB PO SCH (08:26)
[2017-02-25] MEDS: buPROPion HCL 100 MG SUSTAINED RELEASE TAB PO SCH (11:04)
[2017-02-25] MEDS: BISACODYL 10 MG SUPP RECTAL SCH (11:04)
[2017-02-25 12:00] VITALS: BP 143/83; PULSE 101; RESP 16; TEMP 98.4; O2SAT 94
[2017-02-25] MEDS: BISACODYL EC 5 MG TABEC PO PRN (12:17)
== END 2017-02-25 14:52 | disposition home or self-care (01) | DRG 392 ==
LOC: NEPC 19:39 → NEDA 23:01 → NEPHCDU 23:45 → OBSVTOIN 02-21 14:02 → N07B 02-21 15:39
PROVIDERS: ADMIT Surgery; ATTEND Surgery
DX: R10.9 Unspecified abdominal pain (principal); E87.2 Acidosis; J98.11 Atelectasis; I10 Essential (primary) hypertension; Z98.890 Other specified postprocedural states; E78.5 Hyperlipidemia, unspecified; F41.8 Other specified anxiety disorders; D72.829 Elevated white blood cell count, unspecified; M85.80 Other specified disorders of bone density and structure, unspecified site
CPT/HCPCS: 71010; 71275; 74177; 80048; 80053; 80076; 83605; 83690; 84484; 85007; 85025; 85027; 85610; 85730; 87040; 90686; 90732; 93005; 94150; 96361; 96365; 96375; 96376; J1170; G0378; J1956; J2270; J2405; J2543; J3480; J7030; J7040; Q2038; Q9967

== ENCOUNTER → 2017-02-20 | Day surgery (SDC) | payer OTHER ==
[~2017-02-20] VITALS: Ht 165.1 cm; Wt 56.7 kg
[~2017-02-20] MED LIST changes: +*morphine SULFATE 8 MG/ML PERIprocedure ONLY ONE; +ACETAMINOPHEN 1000 MG/100 ML 100 ML IV SCH; +ASPI1TAB93 PO; +BUPIVACAINE/EPINEPHRINE 0.5% PF 30 ML VIAL ONE; -BUPR150T3 PO; +BUPR150XL PO; +BUPR300T PO; +CHLORHEXIDINE GLUCONATE 2 % 1 PACK (2 CLOTHS) TOPICAL PRN; +DEXAMETHASONE SOD PHOS 4 MG/ML VIAL IV ONE; +DILA2TAB4 PO; +DO NOT ADM ANY ANTICOAGULANT DRUGS PRN; +FAMOTIDINE 20 MG/2 ML VIAL ONE; +GLYCOPYRROLATE 1 MG/5 ML SYRINGE IV PUSH ONE; -HYDR-3516 PO; +INSULIN HUMAN REGULAR 1,000 UNITS/10 ML VIAL SQ PRN; +KETO10 PO; +KETOROLAC TROMETHAMINE 30 MG/ML (IVP) VIAL IV PUSH ONE; +LACTATED RINGER'S 1000 ML IV PRN; +LIDOCAINE HCL 1% PF 5 ML SYRINGE OTHER ONE; +METOPROLOL TARTRATE 25 MG TAB PO PRN; +MIDAZOLAM HCL 2 MG/2 ML VIAL IV ONE; +MORPHINE SULFATE 4 MG/ML INJ IV PUSH PRN; +NALOXONE HCL 0.4 MG/ML AMP ONE; +NEOSTIGMINE 3 MG/3 ML SYR IV ONE; +ONDANSETRON HCL 4 MG/2 ML VIAL IV ONE; +ONDANSETRON HCL 4 MG/2 ML VIAL IV PUSH PRN; +POVIDONE IODINE 5% (ANTISEPSIS KIT) 4 APPLICATIONS EACH NARE PRN; +PROMETHAZINE INJ 25 MG/ML VIAL ONE; +PROPOFOL 200 MG/20 ML AMP IV ONE; +ROCURONIUM INJ 50 MG/5 ML SYRINGE IV PUSH ONE; +SODIUM CHLORID 0.9% 500 ML IV PRN; +SODIUM CHLORIDE 0.9% FLUSH 10 ML FLUSH IV FLUSH PRN; +SODIUM CHLORIDE 0.9% FLUSH 10 ML FLUSH IV FLUSH SCH; +ZOFR4TAB3 SL; +ceFAZolin 2 GM PREMIX 50 ML IV SCH; +oxyCODONE/ACETAMINOPHEN 5 MG/325 MG TAB PO PRN
--- NOTE | 2017-02-20 10:18 | PD.OP ---
cc: Finesse Molina MD Operative Report Date of Surgery: Feb 20, 2017 Preoperative Diagnosis: Chronic cholecystitis and cholelithiasis Postoperative Diagnosis: Chronic cholecystitis and cholelithiasis Procedure: Laparoscopic cholecystectomy Anesthesia: General endotracheal Surgeon: Finesse Molina Cellular Equipment Repairer(s): Idalmis Rodney CFA Operation and Findings: Operative findings: The patient was found to have a chronically diseased- appearing gallbladder which was thick-walled and had adhesions along at least half its length. No other gross abnormalities were noted. Operative procedure: Patient was brought to the operating room and after satisfactory general endotracheal anesthesia obtained, the abdomen was prepped and draped in usual sterile fashion. 0.5% Marcaine with epinephrine was used to straight skin for local anesthesia. Small incision was made just above the umbilicus and a 5 mm trocar was inserted into the peritoneal cavity under direct visualization. The abdomen was then distended to 15 mmHg using carbon dioxide, after which the camera was reinserted and visceral injury inspected for , with none being identified. Under direct visualization a 12 port and a 5 port were placed in the upper midline. The fundus of the gallbladder was grasped and retracted superiorly over the right lobe of the liver after which adhesions were taken down with the Harmonic scalpel by blunt dissection as well as control with the Harmonic of any bleeding points. Once Chaney's pouch been cleared of adhesions it was grasped and retracted inferiorly and laterally, placing tension on the hepatoduodenal ligament. The cystic duct cystic artery were both dissected free bluntly to obtain the critical view. Once the critical view been obtained the cystic artery was divided near structures with the gallbladder using the harmonic scalpel as well as the cystic duct. The abdomen was then dissected free from the liver bed using the Harmonic. He was placed within an Endo Catch bag and brought through the upper midline incision where it was withdrawn without problem. The trochars reinserted and the liver bed inspected and found to be hemostatic. The cystic duct and cystic artery stumps were both inspected and found to be intact with no leakage of bile or blood. The area was irrigated with saline after which the liver bed in the artery and duct stumps were both inspected again and found to be intact with no problems. The carbon dioxide was then vented as completely as possible the atmosphere after which the ports were removed and the 12 mm fascial defect closed with interrupted 0 Vicryl suture. The skin was closed with interrupted 4-0 Monocryl subcuticular stitches. Steri- Strips were applied and the patient was then awakened and taken from the operating room, in satisfactory condition, having tolerated the procedure without problem. Estimated blood loss was less than 5 mL's. The instrument, sponge, and needle counts were reported as being correct 2 at the end of procedure. Finesse Molina MD Feb 20, 2017 10:18
[2017-02-20 11:15] VITALS: BP 135/76; PULSE 59; RESP 20; TEMP 96; O2SAT 97
== END | disposition home or self-care (01) ==
LOC: HSDC 06:27
PROVIDERS: ATTEND Surgery
DX: K80.10 Calculus of gallbladder with chronic cholecystitis without obstruction (principal); I10 Essential (primary) hypertension
CPT/HCPCS: 00790; 47562; 88304; J0131; J0690; J1100; J2250; J2270; J2310; J2405; J2550; J2710; J3010; J7120

== ENCOUNTER 2017-03-14 07:09 | Day surgery (SDC) | payer OTHER ==
[2017-03-14] VITALS (7 sets, daily range): BP systolic 125–154; BP diastolic 77–88; PULSE 86–103; RESP 18–20; TEMP 97.7–98.6; O2SAT 90–92
[~2017-03-14] VITALS: Ht 165.1 cm; Wt 54.5 kg
[~2017-03-14 07:09] MED LIST changes: +DILA2TAB4 PO; -EXCETAB PO; +KETO10 PO; +ZOFR4TAB3 SL
[2017-03-14] MEDS ORDERED: LIDOCAINE 1%/EPINEPHrine 1:100,000 SOLN 20 ML VIAL ONE (08:05)
[2017-03-14] MEDS ORDERED: SODIUM CHLORIDE FLUSH PRN IV FLUSH (08:15)
[2017-03-14] MEDS ORDERED: MIDAZOLAM HCL 2 MG/2 ML VIAL ONE (08:27)
[2017-03-14] MEDS ORDERED: SODIUM CHLOR 0.9% 1000 ML IV SCH (08:30)
[2017-03-14 08:39] LABS: INTERNATIONAL NORMALIZED RATIO 1.3 RATIO; PROTHROMBIN TIME - PATIENT 12.9 SEC (9.8-11.6)
[2017-03-14] MEDS ORDERED: ONDANSETRON HCL 4 MG/2 ML VIAL ONE (08:51)
[2017-03-14] MEDS ORDERED: SODIUM CHLORIDE FLUSH BID IV FLUSH SCH (09:00)
--- NOTE | 2017-03-14 09:22 | PD.RAD ---
Post CT Procedure Prog Note Pre Procedure Diagnosis: (1) Abdominal fluid collection Post Procedure Diagnosis: (1) Abdominal fluid collection Procedure Date: Mar 14, 2017 Supervising Radiologist: Huey Yee Proceduralist/Assist: mary bill Estimated blood loss: none Anesthesia: Conscious Sedation Plan of Activity Patient to Unit: ROPU Patient Condition: Good See PACS Report for procedural detail/treatment Huey Yee MD Mar 14, 2017 09:22
--- NOTE | 2017-03-14 15:19 | RADRPT ---
EXAM DATE/TIME: 03/14/2017 08:49 [facility] COMPARISON: No previous studies available for comparison. INDICATIONS : Abdominal fluid collection. SEDATION TIME: 15 MEDICATION(S): 1.) 2 mg midazolam (Versed) IV 2.) 100 mcg fentanyl (Sublimaze) IV DEVICE(S): 1.) 6 Fr [id number] FLUID: Total volume of 550 cc of brown fluid was removed. Fluid was discarded. MEDICAL HISTORY : Hypertension. SURGICAL HISTORY : Cholecystectomy. ENCOUNTER: Initial ACUITY: 1 day PAIN SCORE: 0/10 LOCATION: Right lateral PROCEDURE: 1.) Conscious sedation with continuous EKG and oximetry monitoring. PROCEDURE : CT guided aspiration of subcapsular liver fluid collection The risks, benefits and alternatives to the procedure were explained and verbal and written consent w as obtained. Using automated exposure control and adjustment of the mA and/or kV according to patien t size, radiation dose was kept as low as reasonably achievable to obtain optimal diagnostic quality images. The site was prepped in sterile fashion. Full sterile technique was used, including cap, ma sk, sterile gloves and gown and a large sterile sheet. Hand hygiene and 2% chlorhexidine and/or beta dine/alcohol prep was utilized per protocol for cutaneous antisepsis. The skin and subcutaneous tiss ues were infiltrated with local anesthetic solution. DICOM format image data is available electronic ally for review and comparison. Needle was placed within the liver subcapsular fluid collection and yellowish brown fluid aspirated. CONCLUSION: Uncomplicated aspiration of subcapsular liver fluid as above. This may be related to biloma. If this reaccumulates a drainage catheter may be placed. Huey Yee MD on March 14, 2017 at 15:16 Board Certified Radiologist. This report was verified electronically.
== END 2017-03-14 11:20 | disposition home or self-care (01) ==
LOC: HRAD 07:09 → HRIP 07:10 → HRAD 11:20
PROVIDERS: ATTEND Surgery
DX: R18.8 Other ascites (principal); I10 Essential (primary) hypertension
CPT/HCPCS: 10022; 77012; 85610; 85730; 99152; C1729; J2250; J2405; J3010; J7030